=== PATIENT | female | born 1955 | race Caucasian/White ===

== ENCOUNTER 2017-08-07 18:27 | Inpatient (IN) | payer OTHER ==
[2017-08-07 20:18] VITALS: BMI 28.7
--- NOTE | 2017-08-07 20:32 | HP ---
Admission ROS [facility] Chief Complaint: SEEKING REHAB SERVICES AFTER COMPLETING DETOX TO MAINTAIN RECOVERY. Allergies/Adverse Reactions: Allergies Allergy/AdvReac Type Severity Reaction Status Date / Time No Known Allergies Allergy Verified 08/07/17 20:21 History of Present Illness: 62 Y.O. FEMALE WITH BENZO DEPENDENCE HERE FOR ADMISSION TO REHAB. CLIENT WAS DC FROM [facility] AFTER BEING TREATED THERE FROM 07/26/2017 TO 08/07/2017 FOR BENZO OVERDOSE. SHE IS CURRENTLY ON MMTP 195MG REPORTS LDM TODAY. DENIES ANY SIGNIFICANT PERIOD OF CLEAN TIME. REFERRED BY [facility]. Exam Limitations: No Limitations - Ebola screening Have you traveled outside of the country in the last 21 days: No Have you had contact with anyone from an Ebola affected area: No Have you been sick,other than usual withdrawal symptoms: No Do you have a fever: No - Review of Systems Constitutional: No Symptoms Reported EENT: reports: No Symptoms Reported Respiratory: reports: No Symptoms reported Cardiac: reports: No Symptoms Reported GI: reports: Constipated : reports: No Symptoms Reported Musculoskeletal: reports: Joint Pain (KNEES) Integumentary: reports: No Symptoms Reported Neuro: reports: Headache (MIGRAINES) Endocrine: reports: Other (HX/O DM) Hematology: reports: No Symptoms Reported Psychiatric: reports: Anxious Other Systems: Reviewed and Negative Patient History - Patient Medical History Hx Anemia: No Hx Asthma: No Hx Chronic Obstructive Pulmonary Disease (COPD): No Hx Cancer: No Hx Cardiac Disorders: No Hx Congestive Heart Failure: No Hx Hypertension: Yes (ATENOLOL) Hx Hypercholesterolemia: Yes (ON CRESTOR) Hx Pacemaker: No HX Cerebrovascular Accident: No Hx Seizures: No Hx Dementia: No Hx Diabetes: Yes (METFORMIN) Hx Gastrointestinal Disorders: Yes (GERD ON PEPCID) Hx Liver Disease: No Hx Genitourinary Disorders: No Hx Sexually Transmitted Disorders: No Hx Renal Disease (ESRD): No Hx Thyroid Disease: No Hx Human Immunodeficiency Virus (HIV): Yes (ON TRIUMEQ) Hx Hepatitis C: Yes Hx Depression: Yes Hx Suicide Attempt: No Hx Bipolar Disorder: No Hx Schizophrenia: No - Patient Surgical History Past Surgical History: No - PPD History Previous Implant?: Yes Documented Results: Negative w/o proof Implanted On Prior [facility] Admission?: No PPD to be Administered?: Yes - Reproductive History Patient is a Female of Child Bearing Age (11 -55 yrs old): No Patient : No ([place] [facility] [place] - Smoking Cessation Smoking history: Current every day smoker Have you smoked in the past 12 months: Yes Aproximately how many cigarettes per day: 30 Cigars Per Day: 0 Hx Chewing Tobacco Use: No Initiated information on smoking cessation: Yes 'Breaking Loose' booklet given: 08/07/17 - Substance & Tx. History Hx Alcohol Use: No Hx Substance Use: Yes Substance Use Type: Opiates (METHADONE), Tranquilizers (XANAX) Hx Substance Use Treatment: No - Substances Abused XANAX Route: Oral Frequency: 3-6 times per week Amount used: 10MG Age of first use: 60 Date of Last Use: 07/26/17 Family Disease History - Family Disease History Family History: Denies Family Disease History: Diabetes: Mother Admission Physical Exam S - Vital Signs Vital Signs: Vital Signs - 24 hr 08/07/17 20:16 Temperature 97.5 F L Pulse Rate 76 Respiratory 18 Rate Blood Pressure 151/84 - Physical General Appearance: Yes: Appropriately Dressed, Anxious HEENTM: Yes: EOMI, Normocephalic, Normal Voice, Pharynx Normal, Other (DENTURES UPPER AND BOTTOMS) Respiratory: Yes: Chest Non-Tender, Lungs Clear, Normal Breath Sounds, No Respiratory Distress, No Accessory Muscle Use Neck: Yes: No masses,lesions,Nodules, Supple, Trachea in good position Breast: Yes: Breast Exam Deferred Cardiology: Yes: Regular Rhythm, Regular Rate, S1, S2 Abdominal: Yes: Normal Bowel Sounds, Non Tender, Soft, Protuberent, Other ( RESOLVING ECCHYMOTIC AREAS TO ABD BATEMAN) Genitourinary: Yes: Within Normal Limits Back: Yes: Normal Inspection Musculoskeletal: Yes: full range of Motion, Gait Steady Extremities: Yes: Normal Capillary Refill, Normal Range of Motion, Non-Tender, Tremors Neurological: Yes: Alert, Other (FORGETFUL) Integumentary: Yes: Normal Color, Dry, Warm, Track [place] Lymphatic: Yes: Within Normal Limits - Diagnostic (1) Benzodiazepine dependence Current Visit: Yes Status: Chronic (2) Nicotine dependence Current Visit: Yes Status: Chronic Qualifiers: Substance use status: uncomplicated (3) HTN (hypertension) Current Visit: Yes Status: Chronic Qualifiers: Hypertension type: essential hypertension Qualified Code(s): I10 - Essential (primary) hypertension; I10 - Essential (primary) hypertension; I10 - Essential (primary) hypertension (4) Type 2 diabetes mellitus Current Visit: Yes Status: Chronic (5) GERD (gastroesophageal reflux disease) Current Visit: Yes Status: Chronic (6) HIV (human immunodeficiency virus infection) Current Visit: Yes Status: Chronic (7) Methadone maintenance therapy patient Current Visit: Yes Status: Chronic Cleared for Admission [facility] - Detox or Rehab Detox Regimen/Protocol: Not Applicable Claeared for Rehab Admission: Yes [facility] Breath Alcohol Content Breath Alcohol Content: 0 Urine Pregancy Test - Result Urine Test Results: Negative- NO Line Present Urine Drug Screen - Results Drug Screen Negative: No Urine Drug Screen Results: BZO-Benzodiazepines, MTD-Methadone, TCA-Tricyclic Antidepress Inpatient Rehab Admission - Initial Determination Are CD services needed?: Yes Free of communicable disease: Yes Not in need of hospitalization: Yes - Rehab Admission Criteria Previous failed treatment: Yes Poor recovery environment: Yes Comorbidities: Yes Lacks judgement: Yes Patient is meeting Inpatient Rehab admission criteria:: Yes
[2017-08-07] MEDS ORDERED: hydrOXYzine PAMOATE 50 MG CAPSULE (FP) PO PRN (21:04)
[2017-08-07] MEDS ORDERED: LOPERAMIDE HCL 2 MG CAPSULE PO PRN (21:04)
[2017-08-07] MEDS ORDERED: P-EPHED 60MG/TRIPROLIDI 2.5MG TABLET PO PRN (21:04)
[2017-08-07] MEDS ORDERED: IBUPROFEN 400 MG TABLET (FP) PO PRN (21:04)
[2017-08-07] MEDS ORDERED: ACETAMINOPHEN 325 MG TABLET (FP) PO PRN (21:04)
[2017-08-07] MEDS ORDERED: guaiFENesin/D-METHORPHAN HB 10 ML UNIT-DOSE CUPS PO PRN (21:04)
[2017-08-07] MEDS ORDERED: MAGNESIUM HYDROX 2400MG/30ML ORAL SUSPENSION 30 ML CUP PO PRN (21:04)
[2017-08-07] MEDS ORDERED: MENTHOL/PHENOL 1 EACH UD MM PRN (21:04)
[2017-08-07] MEDS ORDERED: MAGNESIUM CITRATE 300 ML BOTTLE PO PRN (21:04)
[2017-08-07] MEDS: ROSUVASTATIN CA 5 MG TABLET (FP) PO SCH (23:14)
[2017-08-07] MEDS: THIAMINE HCL 100 MG TABLET (FP) PO SCH (23:15)
[2017-08-07 23:29] LABS: URINE APPEARANCE SLCLOUDY; URINE BILIRUBIN NEGATIVE (NEGATIVE); URINE BLOOD NEGATIVE (NEGATIVE); URINE COLOR LTYELLOW; URINE GLUCOSE (UA) NEGATIVE (NEGATIVE); URINE KETONE NEGATIVE (NEGATIVE); URINE NITRITE NEGATIVE (NEGATIVE); URINE PROTEIN NEGATIVE (NEGATIVE); URINE UROBILINOGEN NEGATIVE mg/dL (0.2-1.0)
[2017-08-08] MEDS ORDERED: METHADONE HCL 40 MG DISPERSABLE TABLET PO SCH (07:30)
[2017-08-08] MEDS ORDERED: METHADONE HCL 10 MG TABLET ONE (07:48)
[2017-08-08] MEDS ORDERED: METHADONE HCL 5 MG TABLET ONE (07:48)
[2017-08-08] MEDS ORDERED: METHADONE HCL 40 MG DISPERSABLE TABLET ONE (07:48)
[2017-08-08] MEDS: metFORMIN HCL 500 MG TABLET (FP) PO SCH (07:52)
[2017-08-08] MEDS: METHADONE 160 MG, METHADONE 30 MG, METHADONE 5 MG PO SCH (07:52)
[2017-08-08 10:17] LABS: MCHC 33.3 g/dl (32.0-36.0); MEAN PLT VOLUME 11.3 fl (7.5-11.1); PLATELET COUNT 64 K/MM3 (134-434); RDW 13.8 % (11.6-15.6); WHITE BLOOD COUNT 3.5 K/mm3 (4.0-10.0)
[2017-08-08 10:30] LABS: ALBUMIN 2.9 g/dl (3.4-5.0); ANION GAP 6 (8-16); CALCIUM 8.4 mg/dL (8.5-10.1); CO2 28 mmol/L (21-32); GLUCOSE,RANDOM 95 mg/dL (74-106)
[2017-08-08] MEDS: ABACAVIR/DOLUTEGRAVIR/LAMIVUDI (TRIUMEQ) TABLET -NF PO SCH (10:30)
[2017-08-08] MEDS: PANTOPRAZOLE 40 MG TABLET (FP) PO SCH (10:30)
[2017-08-08] MEDS: ATENOLOL 25 MG TABLET (FP) PO SCH (10:30)
[2017-08-08] MEDS: PRENATAL VITAMINS W/ FOLIC ACID TABLET (FP) PO SCH (10:30)
[2017-08-08] MEDS: NICOTINE 21 MG/24 HOURS TOPICAL PATCH TD SCH (10:30)
[2017-08-08 10:33] LABS: ALK PHOS 100 U/L (45-117); BILIRUBIN,TOTAL 0.4 mg/dL (0.2-1.0); SGOT/AST 29 U/L (15-37); SGPT/ALT 65 U/L (12-78); TOT PROT 6.4 g/dl (6.4-8.2)
[2017-08-08 11:58] LABS: URINE LEUK ESTERASE TRACE (NEGATIVE)
[2017-08-08] MEDS: GABAPENTIN 100 MG CAPSULE (FP) PO SCH (21:40)
[2017-08-08] MEDS: MONTELUKAST NA 10 MG TABLET PO SCH (21:40)
[2017-08-08] MEDS: THIAMINE HCL 100 MG TABLET (FP) PO SCH (21:41)
[2017-08-08] MEDS: traZODone HCL 50 MG TABLET (FP) PO SCH (21:41)
[2017-08-08] MEDS: QUEtiapine FUMARATE 100 MG TABLET (FP) PO SCH (21:41)
[2017-08-08] MEDS: MIRTAZAPINE 15 MG TABLET (FP) PO SCH (21:41)
[2017-08-08] MEDS: DOXEPIN HCL 25 MG CAPSULE PO SCH (22:31)
[2017-08-08] MEDS: ROSUVASTATIN CA 5 MG TABLET (FP) PO SCH (22:32)
[2017-08-08] MEDS ORDERED: PT OWN MED DRAWER 7, Y5N ONE (22:34)
[2017-08-09] MEDS ORDERED: METHADONE HCL 10 MG TABLET ONE (02:27)
[2017-08-09] MEDS ORDERED: METHADONE HCL 40 MG DISPERSABLE TABLET ONE (02:27)
[2017-08-09] MEDS ORDERED: METHADONE HCL 5 MG TABLET ONE (02:27)
[2017-08-09] MEDS: METHADONE 160 MG, METHADONE 30 MG, METHADONE 5 MG PO SCH (06:47)
[2017-08-09] MEDS: metFORMIN HCL 500 MG TABLET (FP) PO SCH (06:48)
[2017-08-09] MEDS: GABAPENTIN 100 MG CAPSULE (FP) PO SCH ×3 (06:48→21:56)
[2017-08-09] MEDS: NICOTINE 21 MG/24 HOURS TOPICAL PATCH TD SCH (09:48)
[2017-08-09] MEDS: PANTOPRAZOLE 40 MG TABLET (FP) PO SCH (09:49)
[2017-08-09] MEDS: ABACAVIR/DOLUTEGRAVIR/LAMIVUDI (TRIUMEQ) TABLET -NF PO SCH (09:49)
[2017-08-09] MEDS: ATENOLOL 25 MG TABLET (FP) PO SCH (09:49)
[2017-08-09] MEDS: PRENATAL VITAMINS W/ FOLIC ACID TABLET (FP) PO SCH (09:49)
[2017-08-09] MEDS: traZODone HCL 50 MG TABLET (FP) PO SCH (21:55)
[2017-08-09] MEDS: MONTELUKAST NA 10 MG TABLET PO SCH (21:55)
[2017-08-09] MEDS: THIAMINE HCL 100 MG TABLET (FP) PO SCH (21:56)
[2017-08-09] MEDS: MIRTAZAPINE 15 MG TABLET (FP) PO SCH (21:56)
[2017-08-09] MEDS: QUEtiapine FUMARATE 100 MG TABLET (FP) PO SCH (21:56)
[2017-08-09] MEDS: DOXEPIN HCL 25 MG CAPSULE PO SCH (21:56)
[2017-08-09] MEDS: ROSUVASTATIN CA 5 MG TABLET (FP) PO SCH (21:57)
[2017-08-09] MEDS ORDERED: DOXEPIN HCL 25 MG CAPSULE PO SCH (22:00)
[2017-08-10] MEDS ORDERED: METHADONE HCL 5 MG TABLET ONE (03:24)
[2017-08-10] MEDS ORDERED: METHADONE HCL 40 MG DISPERSABLE TABLET ONE (03:25)
[2017-08-10] MEDS ORDERED: METHADONE HCL 10 MG TABLET ONE (03:25)
[2017-08-10] MEDS: METHADONE 160 MG, METHADONE 30 MG, METHADONE 5 MG PO SCH (06:32)
[2017-08-10] MEDS: metFORMIN HCL 500 MG TABLET (FP) PO SCH (06:33)
[2017-08-10] MEDS: GABAPENTIN 100 MG CAPSULE (FP) PO SCH ×3 (06:33→21:24)
[2017-08-10] MEDS ORDERED: PT OWN MED DRAWER 7, Y5N ONE ×2 (08:42→19:05)
[2017-08-10] MEDS: ABACAVIR/DOLUTEGRAVIR/LAMIVUDI (TRIUMEQ) TABLET -NF PO SCH (10:16)
[2017-08-10] MEDS: PANTOPRAZOLE 40 MG TABLET (FP) PO SCH (10:16)
[2017-08-10] MEDS: PRENATAL VITAMINS W/ FOLIC ACID TABLET (FP) PO SCH (10:17)
[2017-08-10] MEDS: NICOTINE 21 MG/24 HOURS TOPICAL PATCH TD SCH (10:17)
[2017-08-10] MEDS: ATENOLOL 25 MG TABLET (FP) PO SCH (10:17)
[2017-08-10 11:57] LABS: CALCIUM OXALATE CRYSTALS MODERATE /hpf (NONE SEEN); URIC ACID CRYSTALS MANY /hpf (NONE SEEN); URINE RBC 0; URINE WBC 5
--- NOTE | 2017-08-10 13:53 | HP ---
Psychiatrist Admission - Data Date of interview: 08/10/17 Admission source: [facility] [place] Identifying data: This is the first admission to [facility] [place] inpatient rehabilitation for this 62 single H female mother of 2 (both son and daughter commited suicide),resides alone ,supported by [facility]. Medical History: HIV+,Gep C,HTN,GERD,DM. Psychiatric History: Patient was dx with PTSD(2 children committed suicide).She was placed on psychotropic medications recently by her psychiatrist at [facility]: Seroquel 200 mg po hs,Doxepin 25 mg po hs,Trazodone 150 mg po hs and Remeron 15 mg po hs.Denies history of suicidal attempts,no psychiatric hospitalizations. Physical/Sexual Abuse/Trauma History: Patient lost both her children(son and daughter committed suicide). Vital Signs: Vital Signs - 24 hr 08/10/17 08/10/17 08/10/17 00:30 03:30 06:59 Temperature 97.8 F Pulse Rate 80 Respiratory 18 18 18 Rate Blood Pressure 105/65 08/10/17 10:00 Temperature Pulse Rate 72 Respiratory Rate Blood Pressure 100/61 Allergies/Adverse Reactions: Allergies Allergy/AdvReac Type Severity Reaction Status Date / Time No Known Allergies Allergy Verified 08/07/17 20:21 Date of last physical exam: 08/07/17 Concur with the findings of this exam: Yes - Substance Abuse/Tx History Hx Alcohol Use: Yes (reports drinking 18 yo,a few 6 packs beer daily) Hx Substance Use: Yes (heroin since 1989(IV),Xanax ) Substance Use Type: Alcohol, Heroin, Tranquilizers Hx Substance Use Treatment: Yes (this is her first inpatient rehabilitation program) Mental Status Exam - Mental Status Exam Alert and Oriented to: Time, Place, Person Cognitive Function: Grossly Intact Patient Appearance: Unkempt Mood: Sad, Anxious Affect: Labile Patient Behavior: Cooperative Speech Pattern: Clear Voice Loudness: Normal Thought Process: Goal Oriented Thought Disorder: Not Present Hallucinations: Denies Suicidal Ideation: Denies Homicidal Ideation: Denies Insight/Judgement: Fair Sleep: Fair Appetite: Good Muscle strength/Tone: Normal Gait/Station: Normal Psychiatric Findings - Problem List ([place] 1, 2,3) (1) Hepatitis C antibody positive in blood Current Visit: Yes Status: Chronic (2) Benzodiazepine dependence Current Visit: Yes Status: Chronic (3) GERD (gastroesophageal reflux disease) Current Visit: Yes Status: Chronic (4) HIV (human immunodeficiency virus infection) Current Visit: Yes Status: Chronic (5) HTN (hypertension) Current Visit: Yes Status: Chronic Qualifiers: Hypertension type: essential hypertension Qualified Code(s): I10 - Essential (primary) hypertension; I10 - Essential (primary) hypertension; I10 - Essential (primary) hypertension (6) Methadone maintenance therapy patient Current Visit: Yes Status: Chronic (7) Nicotine dependence Current Visit: Yes Status: Chronic Qualifiers: Substance use status: uncomplicated (8) Type 2 diabetes mellitus Current Visit: Yes Status: Chronic (9) PTSD (post-traumatic stress disorder) Current Visit: Yes Status: Chronic - Initial Treatment Plan Initial Treatment Plan: Remeron 15 mg po hs,Trazodone 150 mg po hs,Doxepin 25 mg po hs and Seroquel 200 mg po hs. Will monitor progress.
[2017-08-10] MEDS: traZODone HCL 50 MG TABLET (FP) PO SCH (21:24)
[2017-08-10] MEDS: THIAMINE HCL 100 MG TABLET (FP) PO SCH (21:24)
[2017-08-10] MEDS: QUEtiapine FUMARATE 100 MG TABLET (FP) PO SCH (21:24)
[2017-08-10] MEDS: MONTELUKAST NA 10 MG TABLET PO SCH (21:24)
[2017-08-10] MEDS: MIRTAZAPINE 15 MG TABLET (FP) PO SCH (21:24)
[2017-08-10] MEDS: DOXEPIN HCL 25 MG CAPSULE PO SCH (21:25)
[2017-08-10] MEDS: ROSUVASTATIN CA 5 MG TABLET (FP) PO SCH (21:25)
[2017-08-11] MEDS ORDERED: METHADONE HCL 40 MG DISPERSABLE TABLET ONE (05:59)
[2017-08-11] MEDS ORDERED: METHADONE HCL 10 MG TABLET ONE (05:59)
[2017-08-11] MEDS ORDERED: METHADONE HCL 5 MG TABLET ONE (05:59)
[2017-08-11] MEDS: METHADONE 160 MG, METHADONE 30 MG, METHADONE 5 MG PO SCH (06:41)
[2017-08-11] MEDS: metFORMIN HCL 500 MG TABLET (FP) PO SCH (06:42)
[2017-08-11] MEDS: GABAPENTIN 100 MG CAPSULE (FP) PO SCH ×3 (06:42→21:33)
--- NOTE | 2017-08-11 07:44 | EKG ---
Test Reason : Blood Pressure : / mmHG Vent. Rate : 065 BPM Atrial Rate : 065 BPM P-R Int : 142 ms QRS Dur : 072 ms QT Int : 426 ms P-R-T Axes : 040 039 031 degrees QTc Int : 443 ms NORMAL SINUS RHYTHM NORMAL ECG NO PREVIOUS ECGS AVAILABLE Confirmed by KHANH TSAI MD ([id number]) on 08/11/2017 7:44:31 AM Referred By: Confirmed By:KHANH TSAI MD
[2017-08-11] MEDS: ABACAVIR/DOLUTEGRAVIR/LAMIVUDI (TRIUMEQ) TABLET -NF PO SCH (10:36)
[2017-08-11] MEDS: NICOTINE 21 MG/24 HOURS TOPICAL PATCH TD SCH (10:36)
[2017-08-11] MEDS: PRENATAL VITAMINS W/ FOLIC ACID TABLET (FP) PO SCH (10:36)
[2017-08-11] MEDS: ATENOLOL 25 MG TABLET (FP) PO SCH (10:36)
[2017-08-11] MEDS: PANTOPRAZOLE 40 MG TABLET (FP) PO SCH (10:36)
[2017-08-11] MEDS ORDERED: METHADONE HCL 40 MG DISPERSABLE TABLET PO SCH (12:46)
[2017-08-11] MEDS ORDERED: TUBERCULIN PPD 5 TU/0.1ML VIAL ID ONE (13:20)
[2017-08-11] MEDS: LIDOCAINE 5% TOPICAL PATCH TP SCH (13:53)
[2017-08-11] MEDS: THIAMINE HCL 100 MG TABLET (FP) PO SCH (21:33)
[2017-08-11] MEDS: traZODone HCL 50 MG TABLET (FP) PO SCH (21:33)
[2017-08-11] MEDS: QUEtiapine FUMARATE 100 MG TABLET (FP) PO SCH (21:33)
[2017-08-11] MEDS: MONTELUKAST NA 10 MG TABLET PO SCH (21:33)
[2017-08-11] MEDS: MIRTAZAPINE 15 MG TABLET (FP) PO SCH (21:33)
[2017-08-11] MEDS: DOXEPIN HCL 25 MG CAPSULE PO SCH (21:34)
[2017-08-11] MEDS: LIDOCAINE PATCH REMOVAL MC SCH (21:35)
[2017-08-11] MEDS: ROSUVASTATIN CA 5 MG TABLET (FP) PO SCH (21:35)
[2017-08-12] MEDS ORDERED: METHADONE HCL 5 MG TABLET ONE (07:04)
[2017-08-12] MEDS ORDERED: METHADONE HCL 10 MG TABLET ONE (07:04)
[2017-08-12] MEDS ORDERED: METHADONE HCL 40 MG DISPERSABLE TABLET ONE (07:05)
[2017-08-12] MEDS: METHADONE 160 MG, METHADONE 20 MG, METHADONE 5 MG PO SCH (07:37)
[2017-08-12] MEDS: GABAPENTIN 100 MG CAPSULE (FP) PO SCH ×3 (07:38→21:31)
[2017-08-12] MEDS: metFORMIN HCL 500 MG TABLET (FP) PO SCH (07:38)
[2017-08-12] MEDS ORDERED: PT OWN MED DRAWER 7, Y5N ONE (08:57)
[2017-08-12] MEDS: PRENATAL VITAMINS W/ FOLIC ACID TABLET (FP) PO SCH (10:36)
[2017-08-12] MEDS: ABACAVIR/DOLUTEGRAVIR/LAMIVUDI (TRIUMEQ) TABLET -NF PO SCH (10:37)
[2017-08-12] MEDS: PANTOPRAZOLE 40 MG TABLET (FP) PO SCH (10:37)
[2017-08-12] MEDS: NICOTINE 21 MG/24 HOURS TOPICAL PATCH TD SCH (10:37)
[2017-08-12] MEDS: ATENOLOL 25 MG TABLET (FP) PO SCH (10:37)
[2017-08-12] MEDS: LIDOCAINE 5% TOPICAL PATCH TP SCH (10:38)
[2017-08-12] MEDS: THIAMINE HCL 100 MG TABLET (FP) PO SCH (21:31)
[2017-08-12] MEDS: traZODone HCL 50 MG TABLET (FP) PO SCH (21:31)
[2017-08-12] MEDS: DOXEPIN HCL 25 MG CAPSULE PO SCH (21:31)
[2017-08-12] MEDS: MONTELUKAST NA 10 MG TABLET PO SCH (21:31)
[2017-08-12] MEDS: MIRTAZAPINE 15 MG TABLET (FP) PO SCH (21:31)
[2017-08-12] MEDS: QUEtiapine FUMARATE 100 MG TABLET (FP) PO SCH (21:32)
[2017-08-12] MEDS: LIDOCAINE PATCH REMOVAL MC SCH (21:35)
[2017-08-12] MEDS: ROSUVASTATIN CA 5 MG TABLET (FP) PO SCH (21:35)
[2017-08-13] MEDS ORDERED: METHADONE HCL 5 MG TABLET ONE (03:23)
[2017-08-13] MEDS ORDERED: METHADONE HCL 40 MG DISPERSABLE TABLET ONE (03:23)
[2017-08-13] MEDS ORDERED: METHADONE HCL 10 MG TABLET ONE (03:23)
[2017-08-13] MEDS: METHADONE 160 MG, METHADONE 20 MG, METHADONE 5 MG PO SCH (06:40)
[2017-08-13] MEDS: GABAPENTIN 100 MG CAPSULE (FP) PO SCH ×2 (06:41→13:03)
[2017-08-13] MEDS: metFORMIN HCL 500 MG TABLET (FP) PO SCH (06:41)
[2017-08-13] MEDS ORDERED: PT OWN MED DRAWER 7, Y5N ONE (08:40)
[2017-08-13] MEDS: PRENATAL VITAMINS W/ FOLIC ACID TABLET (FP) PO SCH (10:27)
[2017-08-13] MEDS: LIDOCAINE 5% TOPICAL PATCH TP SCH (10:27)
[2017-08-13] MEDS: PANTOPRAZOLE 40 MG TABLET (FP) PO SCH (10:27)
[2017-08-13] MEDS: ABACAVIR/DOLUTEGRAVIR/LAMIVUDI (TRIUMEQ) TABLET -NF PO SCH (10:27)
[2017-08-13] MEDS: ATENOLOL 25 MG TABLET (FP) PO SCH (10:27)
[2017-08-13] MEDS: NICOTINE 21 MG/24 HOURS TOPICAL PATCH TD SCH (10:28)
--- NOTE | 2017-08-13 14:56 | PN ---
[facility] Progress Note (SOAP) Subjective: c/o new ankle swelling, confusion has bee decreasing methadone daily dose from 195 to 185 but does not want to go down further Objective: 08/13/17 14:52 Vital Signs - 24 hr 08/12/17 08/13/17 08/13/17 15:30 00:30 03:30 Temperature 97.3 F L Pulse Rate 76 Respiratory 16 18 18 Rate Blood Pressure 109/65 08/13/17 08/13/17 07:12 10:00 Temperature 97.8 F Pulse Rate 83 81 Respiratory 18 Rate Blood Pressure 114/85 117/72 Laboratory Tests 08/07/17 08/08/17 08/08/17 21:55 07:51 07:55 WBC 3.5 L RBC 3.87 Hgb 12.0 Hct 36.0 MCV 93.0 MCH 31.0 MCHC 33.3 RDW 13.8 Plt Count 64 L MPV 11.3 H Sodium Potassium Chloride Carbon Dioxide Anion Gap BUN Creatinine Creat Clearance w eGFR POC Glucometer 105 Random Glucose Calcium Total Bilirubin AST ALT Alkaline Phosphatase Total Protein Albumin Urine Color Ltyellow Urine Appearance Slcloudy Urine pH 5.0 Ur Specific [place] 1.021 Urine Protein Negative Urine Glucose (UA) Negative Urine Ketones Negative Urine Blood Negative Urine Nitrite Negative Urine Bilirubin Negative Urine Urobilinogen Negative Ur Leukocyte Esterase Trace H Urine RBC 0 Urine WBC 5 Ur Epithelial Cells 10-15 Calcium Oxalate Crystal Moderate Uric Acid Crystals Many RPR Titer Hepatitis C Antibody HCV Quantitation HCV RNA 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 08/08/17 08/08/17 08/08/17 07:55 07:55 07:55 WBC RBC Hgb Hct MCV MCH MCHC RDW Plt Count MPV Sodium 140 Potassium 4.4 Chloride 106 Carbon Dioxide 28 Anion Gap 6 L BUN 25 H Creatinine 1.0 Creat Clearance w eGFR 56.56 POC Glucometer Random Glucose 95 Calcium 8.4 L Total Bilirubin 0.4 AST 29 ALT 65 Alkaline Phosphatase 100 Total Protein 6.4 Albumin 2.9 L Urine Color Urine Appearance Urine pH Ur Specific [place] Urine Protein Urine Glucose (UA) Urine Ketones Urine Blood Urine Nitrite Urine Bilirubin Urine Urobilinogen Ur Leukocyte Esterase Urine RBC Urine WBC Ur Epithelial Cells Calcium Oxalate Crystal Uric Acid Crystals RPR Titer Nonreactive Hepatitis C Antibody 6.4 H HCV Quantitation HCV RNA 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 08/09/17 08/10/17 08/10/17 06:45 06:31 08:00 WBC RBC Hgb Hct MCV MCH MCHC RDW Plt Count MPV Sodium Potassium Chloride Carbon Dioxide Anion Gap BUN Creatinine Creat Clearance w eGFR POC Glucometer 107 138 Random Glucose Calcium Total Bilirubin AST ALT Alkaline Phosphatase Total Protein Albumin Urine Color Urine Appearance Urine pH Ur Specific [place] Urine Protein Urine Glucose (UA) Urine Ketones Urine Blood Urine Nitrite Urine Bilirubin Urine Urobilinogen Ur Leukocyte Esterase Urine RBC Urine WBC Ur Epithelial Cells Calcium Oxalate Crystal Uric Acid Crystals RPR Titer Hepatitis C Antibody HCV Quantitation Hcv not detected HCV RNA 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 TNP 08/11/17 08/12/17 08/13/17 06:40 07:03 06:39 WBC RBC Hgb Hct MCV MCH MCHC RDW Plt Count MPV Sodium Potassium Chloride Carbon Dioxide Anion Gap BUN Creatinine Creat Clearance w eGFR POC Glucometer 141 107 133 Random Glucose Calcium Total Bilirubin AST ALT Alkaline Phosphatase Total Protein Albumin Urine Color Urine Appearance Urine pH Ur Specific [place] Urine Protein Urine Glucose (UA) Urine Ketones Urine Blood Urine Nitrite Urine Bilirubin Urine Urobilinogen Ur Leukocyte Esterase Urine RBC Urine WBC Ur Epithelial Cells Calcium Oxalate Crystal Uric Acid Crystals RPR Titer Hepatitis C Antibody HCV Quantitation HCV RNA 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
[2017-08-13] MEDS: THIAMINE HCL 100 MG TABLET (FP) PO SCH (21:52)
[2017-08-13] MEDS: MIRTAZAPINE 15 MG TABLET (FP) PO SCH (21:52)
[2017-08-13] MEDS: LIDOCAINE PATCH REMOVAL MC SCH (21:53)
[2017-08-13] MEDS: MONTELUKAST NA 10 MG TABLET PO SCH (21:53)
[2017-08-13] MEDS: QUEtiapine FUMARATE 100 MG TABLET (FP) PO SCH (21:53)
[2017-08-13] MEDS: DOXEPIN HCL 25 MG CAPSULE PO SCH (21:53)
[2017-08-13] MEDS: ROSUVASTATIN CA 5 MG TABLET (FP) PO SCH (23:29)
[2017-08-14] MEDS ORDERED: METHADONE HCL 40 MG DISPERSABLE TABLET ONE (03:23)
[2017-08-14] MEDS ORDERED: METHADONE HCL 5 MG TABLET ONE (03:23)
[2017-08-14] MEDS ORDERED: METHADONE HCL 10 MG TABLET ONE (03:23)
[2017-08-14] MEDS: METHADONE 160 MG, METHADONE 20 MG, METHADONE 5 MG PO SCH (06:21)
[2017-08-14] MEDS: metFORMIN HCL 500 MG TABLET (FP) PO SCH (06:22)
[2017-08-14 09:48] LABS: BASOPHIL 0.3 % (0-2.0); EOSINOPHIL 2.2 % (0-4.5); MCH 30.8 pg (25.7-33.7); MCHC 33.4 g/dl (32.0-36.0); MEAN CELL VOLUME 92.4 fl (80-96); MEAN PLT VOLUME 11.3 fl (7.5-11.1); NEUTROPHILS 48.3 % (42.8-82.8); PLATELET COUNT 85 K/MM3 (134-434); RDW 13.6 % (11.6-15.6); WHITE BLOOD COUNT 3.7 K/mm3 (4.0-10.0)
[2017-08-14] MEDS: PRENATAL VITAMINS W/ FOLIC ACID TABLET (FP) PO SCH (10:28)
[2017-08-14] MEDS: ABACAVIR/DOLUTEGRAVIR/LAMIVUDI (TRIUMEQ) TABLET -NF PO SCH (10:28)
[2017-08-14] MEDS: ATENOLOL 25 MG TABLET (FP) PO SCH (10:29)
[2017-08-14] MEDS: LIDOCAINE 5% TOPICAL PATCH TP SCH ×3 (10:29→12:22)
[2017-08-14] MEDS: NICOTINE 21 MG/24 HOURS TOPICAL PATCH TD SCH (10:29)
[2017-08-14 11:08] LABS: ALBUMIN 2.7 g/dl (3.4-5.0); ANION GAP 6 (8-16); BILIRUBIN,TOTAL 0.2 mg/dL (0.2-1.0); CALCIUM 8.1 mg/dL (8.5-10.1); CO2 31 mmol/L (21-32); GLUCOSE,RANDOM 128 mg/dL (74-106); SGOT/AST 29 U/L (15-37); SGPT/ALT 57 U/L (12-78); TOT PROT 6.1 g/dl (6.4-8.2)
[2017-08-14 11:09] LABS: ALK PHOS 100 U/L (45-117)
[2017-08-14] MEDS ORDERED: LACTULOSE 20 GM/30 ML UDC (FOR ORAL USE ONLY) PO SCH (14:00)
[2017-08-14] MEDS: NICOTINE POLACRILEX 4 MG GUM BC PRN (14:10)
[2017-08-14] MEDS: MIRTAZAPINE 15 MG TABLET (FP) PO SCH (21:54)
[2017-08-14] MEDS: DOXEPIN HCL 25 MG CAPSULE PO SCH (21:54)
[2017-08-14] MEDS: MONTELUKAST NA 10 MG TABLET PO SCH (21:54)
[2017-08-14] MEDS: ROSUVASTATIN CA 5 MG TABLET (FP) PO SCH (21:54)
[2017-08-14] MEDS: THIAMINE HCL 100 MG TABLET (FP) PO SCH (21:54)
[2017-08-14] MEDS: QUEtiapine FUMARATE 100 MG TABLET (FP) PO SCH (21:54)
[2017-08-14] MEDS: LACTULOSE 20 GM/30 ML UDC (FOR ORAL USE ONLY) PO SCH (21:57)
[2017-08-14] MEDS: LIDOCAINE PATCH REMOVAL MC SCH (21:59)
[2017-08-15] MEDS ORDERED: METHADONE HCL 10 MG TABLET ONE (06:00)
[2017-08-15] MEDS ORDERED: METHADONE HCL 5 MG TABLET ONE (06:00)
[2017-08-15] MEDS ORDERED: METHADONE HCL 40 MG DISPERSABLE TABLET ONE (06:01)
[2017-08-15] MEDS: METHADONE 160 MG, METHADONE 20 MG, METHADONE 5 MG PO SCH (06:39)
[2017-08-15] MEDS: metFORMIN HCL 500 MG TABLET (FP) PO SCH (06:39)
[2017-08-15] MEDS: NICOTINE 21 MG/24 HOURS TOPICAL PATCH TD SCH (09:58)
[2017-08-15] MEDS: ATENOLOL 25 MG TABLET (FP) PO SCH (09:58)
[2017-08-15] MEDS: PRENATAL VITAMINS W/ FOLIC ACID TABLET (FP) PO SCH (09:58)
[2017-08-15] MEDS: LACTULOSE 20 GM/30 ML UDC (FOR ORAL USE ONLY) PO SCH ×2 (09:58→21:21)
[2017-08-15] MEDS: LIDOCAINE 5% TOPICAL PATCH TP SCH ×2 (09:59)
[2017-08-15] MEDS: ABACAVIR/DOLUTEGRAVIR/LAMIVUDI (TRIUMEQ) TABLET -NF PO SCH (12:53)
[2017-08-15] MEDS ORDERED: PT OWN MED DRAWER 7, Y5N ONE ×2 (19:37→22:10)
[2017-08-15] MEDS: THIAMINE HCL 100 MG TABLET (FP) PO SCH (21:20)
[2017-08-15] MEDS: MONTELUKAST NA 10 MG TABLET PO SCH (21:21)
[2017-08-15] MEDS: MIRTAZAPINE 15 MG TABLET (FP) PO SCH (21:21)
[2017-08-15] MEDS: DOXEPIN HCL 25 MG CAPSULE PO SCH (21:21)
[2017-08-15] MEDS: QUEtiapine FUMARATE 100 MG TABLET (FP) PO SCH (21:21)
[2017-08-15] MEDS: ROSUVASTATIN CA 5 MG TABLET (FP) PO SCH (21:22)
[2017-08-15] MEDS: LIDOCAINE PATCH REMOVAL MC SCH (21:22)
[2017-08-16] MEDS ORDERED: METHADONE HCL 40 MG DISPERSABLE TABLET ONE (05:58)
[2017-08-16] MEDS ORDERED: METHADONE HCL 10 MG TABLET ONE (05:58)
[2017-08-16] MEDS ORDERED: METHADONE HCL 5 MG TABLET ONE (05:58)
[2017-08-16] MEDS: METHADONE 160 MG, METHADONE 20 MG, METHADONE 5 MG PO SCH (06:38)
[2017-08-16] MEDS: metFORMIN HCL 500 MG TABLET (FP) PO SCH (06:39)
[2017-08-16] MEDS: PRENATAL VITAMINS W/ FOLIC ACID TABLET (FP) PO SCH (10:04)
[2017-08-16] MEDS: ATENOLOL 25 MG TABLET (FP) PO SCH (10:04)
[2017-08-16] MEDS: ABACAVIR/DOLUTEGRAVIR/LAMIVUDI (TRIUMEQ) TABLET -NF PO SCH (10:04)
[2017-08-16] MEDS: LIDOCAINE 5% TOPICAL PATCH TP SCH ×2 (10:05)
[2017-08-16] MEDS: LACTULOSE 20 GM/30 ML UDC (FOR ORAL USE ONLY) PO SCH ×2 (10:05→21:47)
[2017-08-16] MEDS: NICOTINE 21 MG/24 HOURS TOPICAL PATCH TD SCH (10:05)
--- NOTE | 2017-08-16 11:18 | PN ---
Psychiatric Progress Note Vital Signs: Vital Signs Period Temp Pulse Resp BP Sys/Miller Pulse Ox Last 24 Hr 97.8 F-98.2 F 72-80 16-18 154-161/81-89 Date of Session: 08/16/17 Chief Complaint:: Anxiety HPI: Patient addressing Sedative Dependence comorbid with Opoid Dependence on Agonist Therapy, Nicotine Dependence and PTSD ROS: HTN, type 2 DM, Hep C, HIV+ Current Medications: Active Medications Generic Name Dose Route Start Last Admin Trade Name Freq PRN Reason Stop Dose Admin Abacavir/Dolutegravir/Lamivudine 1 each 08/08/17 10:00 08/16/17 10:04 Triumeq (Non-Formulary) PO 1 each DAILY SRIDHAR Administration Al Hydroxide/Mg Hydroxide 30 ml 08/07/17 21:04 Mylanta Oral Suspension - PO Q6H PRN DYSPEPSIA Atenolol 25 mg 08/08/17 10:00 08/16/17 10:04 Tenormin - PO 25 mg DAILY SRIDHAR Administration Doxepin HCl 25 mg 08/08/17 22:00 08/15/17 21:21 Sinequan - PO 25 mg HS SRIDHAR Administration Eucalyptus/Menthol/Phenol/Sorbitol 1 each 08/07/17 21:04 Cepastat Lozenge - MM Q4H PRN SORE THROAT Lactulose 20 gm 08/14/17 22:00 08/16/17 10:05 Cephulac (Oral Use) PO 20 gm BID SRIDHAR Administration Lidocaine 1 patch 08/14/17 11:22 08/16/17 10:05 Lidoderm Patch - TP 1 patch DAILY SRIDHAR Administration Lidocaine 1 patch 08/14/17 11:23 08/16/17 10:05 Lidoderm Patch - TP 1 patch DAILY SRIDHAR Administration Loperamide HCl 4 mg 08/07/17 21:04 Imodium - PO Q6H PRN DIARRHEA Magnesium Citrate 300 ml 08/07/17 21:04 08/13/17 18:41 Citroma - PO 300 ml Q48H PRN Administration CONSTIPATION Magnesium Hydroxide 30 ml 08/07/17 21:04 08/10/17 17:58 Milk Of Magnesia - PO 30 ml DAILY PRN Administration CONSTIPATION Metformin HCl 500 mg 08/08/17 07:00 08/16/17 06:39 Glucophage - PO 500 mg AM SRIDHAR Administration Methadone HCl 160 mg/ 185 mg 08/12/17 06:00 08/16/17 06:38 Methadone HCl 20 mg/ Methadone PO 185 mg HCl 5 mg DAILY@0600 SRIDHAR Administration Mirtazapine 15 mg 08/08/17 22:00 08/15/17 21:21 Remeron - PO 15 mg HS SRIDHAR Administration Miscellaneous 1 each 08/14/17 22:00 08/15/17 21:22 Lidoderm Patch Removal MC 1 each DAILY@2200 SRIDHAR Administration Montelukast Sodium 10 mg 08/08/17 22:00 08/15/17 21:21 Singulair - PO 10 mg HS SRIDHAR Administration Nicotine 21 mg 08/08/17 10:00 08/16/17 10:05 Nicoderm Patch - TD 21 mg DAILY SRIDHAR Administration Nicotine Polacrilex 4 mg 08/07/17 21:04 08/14/17 14:10 Nicorette Gum - BC 4 mg Q2H PRN Administration NICOTINE REPLACEMENT RX Multivit/Folic Acid/Iron 1 tab 08/08/17 10:00 08/16/17 10:04 Vitamins ([facility]) - PO 1 tab DAILY SRIDHAR Administration Quetiapine Fumarate 200 mg 08/08/17 22:00 08/15/17 21:21 Seroquel - PO 200 mg HS SRIDHAR Administration Rosuvastatin Calcium 5 mg 08/07/17 22:00 08/15/17 21:22 Crestor - PO 5 mg HS SRIDHAR Administration Thiamine HCl 100 mg 08/07/17 22:00 08/15/17 21:20 Vitamin B1 - PO 100 mg HS SRIDHAR Administration Medication(s) Change(s): 1) Start Haldol 2 mg po Q 4hrs prn for anxiety and [place] 0.5 mg po Q 4 hrs prn for EPS reaction to Haldol. 2) Decrease Seroquel dosage to 100 mg po HS. 3) Hold Remeron & Doxepin Current Side Effect: No Lab tests ordered: Yes Lab tests reviewed: Yes Provider note:: Asked to see patient because of anxiety. Chart reviewed and patient evaluated. Patient is being treated for hepatic encephalopathy with Lactulose. She is still mildly confused and disoriented. She believes she is in the [place] and today's date is October 31, 2009. Reports feeling very anxious. She is currently on Methadone 185 mg/day along with following psychotropic medications: Seroquel 200 mg po HS, Remeron 15 mg po Hs and Doxepin 25 mg po HS. Mental Status Exam - Mental Status Exam Alert and Oriented to: Time (Oct 31, 2009), Place ([place]), Person Cognitive Function: Impaired Patient Appearance: Well Groomed Mood: Anxious Affect: Appropriate Patient Behavior: Cooperative Speech Pattern: Clear Voice Loudness: Normal Thought Process: Intact Thought Disorder: Not Present Hallucinations: Denies Suicidal Ideation: Denies Homicidal Ideation: Denies Insight/Judgement: Fair Sleep: Fair Appetite: Good Muscle strength/Tone: Normal Gait/Station: Normal Psychiatric Treatment Plan - Problem List (1) Sedative hypnotic or anxiolytic dependence Current Visit: Yes (2) Opioid dependence on agonist therapy Current Visit: Yes (3) Nicotine dependence Current Visit: Yes (4) PTSD (post-traumatic stress disorder) Current Visit: Yes (5) GERD (gastroesophageal reflux disease) Current Visit: Yes (6) HIV (human immunodeficiency virus infection) Current Visit: Yes (7) HTN (hypertension) Current Visit: Yes Qualifiers: Hypertension type: essential hypertension Qualified Code(s): I10 - Essential (primary) hypertension (8) Hepatitis C antibody positive in blood Current Visit: Yes (9) Type 2 diabetes mellitus Current Visit: Yes (10) Hepatic encephalopathy Current Visit: Yes Initial treatment plan: 1) Start Haldol 2 mg po Q 4hrs prn for anxiety and insomnia and Cogentin 0.5 mg po Q 4hrs prn in case of EPS reaction due to Haldol. 2) Decrease Seroquel dosage to 100 mg po HS. 3) Hold Remeron & Sinequan to reduce confusion/disorientation produced by their anticholinergic properties. 4) Recommend that Methadone dosage be reduced further if altered mental state persists
[2017-08-16] MEDS ORDERED: HALOPERIDOL 2 MG TABLET PO PRN (11:51)
[2017-08-16] MEDS ORDERED: BENZTROPINE MESYLATE 0.5 MG TABLET (FP) PO PRN (11:54)
[2017-08-16] MEDS ORDERED: QUEtiapine FUMARATE 100 MG TABLET (FP) PO SCH (12:00)
--- NOTE | 2017-08-16 17:29 | PN ---
[facility] Progress Note Note: Psychiatry Attending's communications lead note : Called by nurse. Issue : patient is anxious. Ms Malik is asking for medications. Situation was addressed in the morning. Over telephone by this remote mortgage underwriter.Spoke to patient. Case was endorsed to Dr Bai (on-site). Chart reviewed. Dr Lanza's intervention : appreciated. Agree with the new careplan : discontinuation of doxepin,trazodone,remeron lowering of methadone and seroquel dose. Recommendation : Maintain close observation. No additional psychotropic medications. Support and reassurance.Medical follow-up. Discussed with nurse.
[2017-08-16] MEDS: QUEtiapine FUMARATE 100 MG TABLET (FP) PO SCH (21:47)
[2017-08-16] MEDS: THIAMINE HCL 100 MG TABLET (FP) PO SCH (21:47)
[2017-08-16] MEDS: MONTELUKAST NA 10 MG TABLET PO SCH (21:47)
[2017-08-16] MEDS: ROSUVASTATIN CA 5 MG TABLET (FP) PO SCH (21:48)
[2017-08-16] MEDS: LIDOCAINE PATCH REMOVAL MC SCH (21:48)
[2017-08-17] MEDS ORDERED: METHADONE HCL 5 MG TABLET ONE (06:02)
[2017-08-17] MEDS ORDERED: METHADONE HCL 40 MG DISPERSABLE TABLET ONE (06:03)
[2017-08-17] MEDS ORDERED: METHADONE HCL 10 MG TABLET ONE (06:03)
[2017-08-17] MEDS: METHADONE 160 MG, METHADONE 20 MG, METHADONE 5 MG PO SCH (06:26)
[2017-08-17] MEDS: metFORMIN HCL 500 MG TABLET (FP) PO SCH (06:26)
[2017-08-17] MEDS ORDERED: PT OWN MED DRAWER 7, Y5N ONE ×2 (08:50→16:16)
[2017-08-17] MEDS: ATENOLOL 25 MG TABLET (FP) PO SCH (10:30)
[2017-08-17] MEDS: PRENATAL VITAMINS W/ FOLIC ACID TABLET (FP) PO SCH (10:30)
[2017-08-17] MEDS: LIDOCAINE 5% TOPICAL PATCH TP SCH ×2 (10:30)
[2017-08-17] MEDS: ABACAVIR/DOLUTEGRAVIR/LAMIVUDI (TRIUMEQ) TABLET -NF PO SCH (10:30)
[2017-08-17] MEDS: NICOTINE 21 MG/24 HOURS TOPICAL PATCH TD SCH (10:31)
[2017-08-17] MEDS: LACTULOSE 20 GM/30 ML UDC (FOR ORAL USE ONLY) PO SCH (10:31)
--- NOTE | 2017-08-17 12:37 | PN ---
[facility] Progress Note (SOAP) Subjective: bilateral ankle swelling, c/o inadequate dose of methadone after decrease in dose, would like to go up to daily dose verified Objective: 08/17/17 12:39 Vital Signs - 8 hr 08/17/17 08/17/17 07:12 09:16 Temperature 97.9 F Pulse Rate 73 87 Respiratory 18 18 Rate Blood Pressure 157/77 150/68 Laboratory Tests 08/07/17 08/08/17 08/08/17 21:55 07:51 07:55 WBC 3.5 L RBC 3.87 Hgb 12.0 Hct 36.0 MCV 93.0 MCH 31.0 MCHC 33.3 RDW 13.8 Plt Count 64 L MPV 11.3 H Neutrophils % Lymphocytes % Monocytes % Eosinophils % Basophils % Sodium Potassium Chloride Carbon Dioxide Anion Gap BUN Creatinine Creat Clearance w eGFR POC Glucometer 105 Random Glucose Calcium Total Bilirubin AST ALT Alkaline Phosphatase Ammonia Total Protein Albumin Urine Color Ltyellow Urine Appearance Slcloudy Urine pH 5.0 Ur Specific [place] 1.021 Urine Protein Negative Urine Glucose (UA) Negative Urine Ketones Negative Urine Blood Negative Urine Nitrite Negative Urine Bilirubin Negative Urine Urobilinogen Negative Ur Leukocyte Esterase Trace H Urine RBC 0 Urine WBC 5 Ur Epithelial Cells 10-15 Calcium Oxalate Crystal Moderate Uric Acid Crystals Many RPR Titer Hepatitis C Antibody HCV Quantitation HCV RNA PCR log cops/ml 08/08/17 08/08/17 08/08/17 07:55 07:55 07:55 WBC RBC Hgb Hct MCV MCH MCHC RDW Plt Count MPV Neutrophils % Lymphocytes % Monocytes % Eosinophils % Basophils % Sodium 140 Potassium 4.4 Chloride 106 Carbon Dioxide 28 Anion Gap 6 L BUN 25 H Creatinine 1.0 Creat Clearance w eGFR 56.56 POC Glucometer Random Glucose 95 Calcium 8.4 L Total Bilirubin 0.4 AST 29 ALT 65 Alkaline Phosphatase 100 Ammonia Total Protein 6.4 Albumin 2.9 L Urine Color Urine Appearance Urine pH Ur Specific [place] Urine Protein Urine Glucose (UA) Urine Ketones Urine Blood Urine Nitrite Urine Bilirubin Urine Urobilinogen Ur Leukocyte Esterase Urine RBC Urine WBC Ur Epithelial Cells Calcium Oxalate Crystal Uric Acid Crystals RPR Titer Nonreactive Hepatitis C Antibody 6.4 H HCV Quantitation HCV RNA PCR log cops/ml 08/09/17 08/10/17 08/10/17 06:45 06:31 08:00 WBC RBC Hgb Hct MCV MCH MCHC RDW Plt Count MPV Neutrophils % Lymphocytes % Monocytes % Eosinophils % Basophils % Sodium Potassium Chloride Carbon Dioxide Anion Gap BUN Creatinine Creat Clearance w eGFR POC Glucometer 107 138 Random Glucose Calcium Total Bilirubin AST ALT Alkaline Phosphatase Ammonia Total Protein Albumin Urine Color Urine Appearance Urine pH Ur Specific [place] Urine Protein Urine Glucose (UA) Urine Ketones Urine Blood Urine Nitrite Urine Bilirubin Urine Urobilinogen Ur Leukocyte Esterase Urine RBC Urine WBC Ur Epithelial Cells Calcium Oxalate Crystal Uric Acid Crystals RPR Titer Hepatitis C Antibody HCV Quantitation Hcv not detected HCV RNA PCR log cops/ml TNP 08/11/17 08/12/17 08/13/17 06:40 07:03 06:39 WBC RBC Hgb Hct MCV MCH MCHC RDW Plt Count MPV Neutrophils % Lymphocytes % Monocytes % Eosinophils % Basophils % Sodium Potassium Chloride Carbon Dioxide Anion Gap BUN Creatinine Creat Clearance w eGFR POC Glucometer 141 107 133 Random Glucose Calcium Total Bilirubin AST ALT Alkaline Phosphatase Ammonia Total Protein Albumin Urine Color Urine Appearance Urine pH Ur Specific [place] Urine Protein Urine Glucose (UA) Urine Ketones Urine Blood Urine Nitrite Urine Bilirubin Urine Urobilinogen Ur Leukocyte Esterase Urine RBC Urine WBC Ur Epithelial Cells Calcium Oxalate Crystal Uric Acid Crystals RPR Titer Hepatitis C Antibody HCV Quantitation HCV RNA PCR log cops/ml 08/14/17 08/14/17 08/14/17 01:29 06:20 07:35 WBC 3.7 L RBC 3.73 Hgb 11.5 Hct 34.4 MCV 92.4 MCH 30.8 MCHC 33.4 RDW 13.6 Plt Count 85 L D MPV 11.3 H Neutrophils % 48.3 Lymphocytes % 36.9 Monocytes % 12.3 H Eosinophils % 2.2 Basophils % 0.3 Sodium Potassium Chloride Carbon Dioxide Anion Gap BUN Creatinine Creat Clearance w eGFR POC Glucometer 151 124 Random Glucose Calcium Total Bilirubin AST ALT Alkaline Phosphatase Ammonia Total Protein Albumin Urine Color Urine Appearance Urine pH Ur Specific [place] Urine Protein Urine Glucose (UA) Urine Ketones Urine Blood Urine Nitrite Urine Bilirubin Urine Urobilinogen Ur Leukocyte Esterase Urine RBC Urine WBC Ur Epithelial Cells Calcium Oxalate Crystal Uric Acid Crystals RPR Titer Hepatitis C Antibody HCV Quantitation HCV RNA PCR log cops/ml 08/14/17 08/14/17 08/15/17 07:35 07:35 06:38 WBC RBC Hgb Hct MCV MCH MCHC RDW Plt Count MPV Neutrophils % Lymphocytes % Monocytes % Eosinophils % Basophils % Sodium 141 Potassium 4.4 Chloride 104 Carbon Dioxide 31 Anion Gap 6 L BUN 18 D Creatinine 1.0 Creat Clearance w eGFR 56.56 POC Glucometer 115 Random Glucose 128 H D Calcium 8.1 L Total Bilirubin 0.2 D AST 29 ALT 57 Alkaline Phosphatase 100 Ammonia 58.06 H Total Protein 6.1 L Albumin 2.7 L Urine Color Urine Appearance Urine pH Ur Specific [place] Urine Protein Urine Glucose (UA) Urine Ketones Urine Blood Urine Nitrite Urine Bilirubin Urine Urobilinogen Ur Leukocyte Esterase Urine RBC Urine WBC Ur Epithelial Cells Calcium Oxalate Crystal Uric Acid Crystals RPR Titer Hepatitis C Antibody HCV Quantitation HCV RNA PCR log cops/ml 08/16/17 08/17/17 06:37 06:25 WBC RBC Hgb Hct MCV MCH MCHC RDW Plt Count MPV Neutrophils % Lymphocytes % Monocytes % Eosinophils % Basophils % Sodium Potassium Chloride Carbon Dioxide Anion Gap BUN Creatinine Creat Clearance w eGFR POC Glucometer 115 111 Random Glucose Calcium Total Bilirubin AST ALT Alkaline Phosphatase Ammonia Total Protein Albumin Urine Color Urine Appearance Urine pH Ur Specific [place] Urine Protein Urine Glucose (UA) Urine Ketones Urine Blood Urine Nitrite Urine Bilirubin Urine Urobilinogen Ur Leukocyte Esterase Urine RBC Urine WBC Ur Epithelial Cells Calcium Oxalate Crystal Uric Acid Crystals RPR Titer Hepatitis C Antibody HCV Quantitation HCV RNA PCR log cops/ml Assessment: 08/17/17 12:39 hepaatic encephalapothy, craving Plan: cont lactulose, increase methadone dose to 195, elevate legs
[2017-08-17] MEDS ORDERED: METHADONE HCL 40 MG DISPERSABLE TABLET PO SCH (12:38)
[2017-08-17] MEDS: HYDROCORTISONE 2.5% TOPICAL CREAM 30 GM TUBE PR SCH (16:15)
[2017-08-17] MEDS: QUEtiapine FUMARATE 100 MG TABLET (FP) PO SCH (21:37)
[2017-08-17] MEDS: THIAMINE HCL 100 MG TABLET (FP) PO SCH (21:37)
[2017-08-17] MEDS: LIDOCAINE PATCH REMOVAL MC SCH (21:38)
[2017-08-17] MEDS: ROSUVASTATIN CA 5 MG TABLET (FP) PO SCH (21:38)
[2017-08-17] MEDS: MONTELUKAST NA 10 MG TABLET PO SCH (21:38)
[2017-08-17] MEDS: NICOTINE POLACRILEX 4 MG GUM BC PRN (21:41)
[2017-08-17] MEDS ORDERED: IBUPROFEN 400 MG TABLET (FP) PO ONE (22:13)
[2017-08-18] MEDS ORDERED: METHADONE HCL 5 MG TABLET ONE (06:13)
[2017-08-18] MEDS ORDERED: METHADONE HCL 10 MG TABLET ONE (06:14)
[2017-08-18] MEDS ORDERED: METHADONE HCL 40 MG DISPERSABLE TABLET ONE (06:14)
[2017-08-18] MEDS: METHADONE 160 MG, METHADONE 30 MG, METHADONE 5 MG PO SCH (06:19)
[2017-08-18] MEDS: metFORMIN HCL 500 MG TABLET (FP) PO SCH (06:19)
[2017-08-18] MEDS ORDERED: PT OWN MED DRAWER 7, Y5N ONE ×2 (08:53→20:56)
[2017-08-18] MEDS: NICOTINE 21 MG/24 HOURS TOPICAL PATCH TD SCH (10:25)
[2017-08-18] MEDS: HYDROCORTISONE 2.5% TOPICAL CREAM 30 GM TUBE PR SCH (10:25)
[2017-08-18] MEDS: PRENATAL VITAMINS W/ FOLIC ACID TABLET (FP) PO SCH (10:25)
[2017-08-18] MEDS: LACTULOSE 20 GM/30 ML UDC (FOR ORAL USE ONLY) PO SCH (10:26)
[2017-08-18] MEDS: ATENOLOL 25 MG TABLET (FP) PO SCH (10:26)
[2017-08-18] MEDS: LIDOCAINE 5% TOPICAL PATCH TP SCH ×2 (10:27)
[2017-08-18] MEDS: ABACAVIR/DOLUTEGRAVIR/LAMIVUDI (TRIUMEQ) TABLET -NF PO SCH (10:31)
[2017-08-18] MEDS: ROSUVASTATIN CA 5 MG TABLET (FP) PO SCH (21:42)
[2017-08-18] MEDS: QUEtiapine FUMARATE 100 MG TABLET (FP) PO SCH (21:42)
[2017-08-18] MEDS: MONTELUKAST NA 10 MG TABLET PO SCH (21:42)
[2017-08-18] MEDS: THIAMINE HCL 100 MG TABLET (FP) PO SCH (21:42)
[2017-08-18] MEDS: LIDOCAINE PATCH REMOVAL MC SCH (21:43)
[2017-08-19] MEDS ORDERED: METHADONE HCL 5 MG TABLET ONE (03:04)
[2017-08-19] MEDS ORDERED: METHADONE HCL 10 MG TABLET ONE (03:04)
[2017-08-19] MEDS ORDERED: METHADONE HCL 40 MG DISPERSABLE TABLET ONE (03:05)
[2017-08-19] MEDS: METHADONE 160 MG, METHADONE 30 MG, METHADONE 5 MG PO SCH (06:09)
[2017-08-19] MEDS: metFORMIN HCL 500 MG TABLET (FP) PO SCH (06:10)
[2017-08-19] MEDS: ATENOLOL 25 MG TABLET (FP) PO SCH (10:39)
[2017-08-19] MEDS: LACTULOSE 20 GM/30 ML UDC (FOR ORAL USE ONLY) PO SCH (10:39)
[2017-08-19] MEDS: HYDROCORTISONE 2.5% TOPICAL CREAM 30 GM TUBE PR SCH (10:39)
[2017-08-19] MEDS: PRENATAL VITAMINS W/ FOLIC ACID TABLET (FP) PO SCH (10:39)
[2017-08-19] MEDS: NICOTINE 21 MG/24 HOURS TOPICAL PATCH TD SCH (10:40)
[2017-08-19] MEDS: ABACAVIR/DOLUTEGRAVIR/LAMIVUDI (TRIUMEQ) TABLET -NF PO SCH (10:42)
[2017-08-19] MEDS ORDERED: PT OWN MED DRAWER 7, Y5N ONE ×2 (10:42→11:21)
[2017-08-19] MEDS: LIDOCAINE 5% TOPICAL PATCH TP SCH ×2 (10:42)
[2017-08-19] MEDS: QUEtiapine FUMARATE 100 MG TABLET (FP) PO SCH (21:48)
[2017-08-19] MEDS: MONTELUKAST NA 10 MG TABLET PO SCH (21:48)
[2017-08-19] MEDS: THIAMINE HCL 100 MG TABLET (FP) PO SCH (21:48)
[2017-08-19] MEDS: ROSUVASTATIN CA 5 MG TABLET (FP) PO SCH (21:49)
[2017-08-19] MEDS: LIDOCAINE PATCH REMOVAL MC SCH (21:49)
[2017-08-20] MEDS ORDERED: METHADONE HCL 10 MG TABLET ONE (03:32)
[2017-08-20] MEDS ORDERED: METHADONE HCL 5 MG TABLET ONE (03:32)
[2017-08-20] MEDS ORDERED: METHADONE HCL 40 MG DISPERSABLE TABLET ONE (03:33)
[2017-08-20] MEDS: METHADONE 160 MG, METHADONE 30 MG, METHADONE 5 MG PO SCH (06:25)
[2017-08-20] MEDS: metFORMIN HCL 500 MG TABLET (FP) PO SCH (06:26)
[2017-08-20] MEDS: LACTULOSE 20 GM/30 ML UDC (FOR ORAL USE ONLY) PO SCH (10:12)
[2017-08-20] MEDS: HYDROCORTISONE 2.5% TOPICAL CREAM 30 GM TUBE PR SCH (10:12)
[2017-08-20] MEDS: LIDOCAINE 5% TOPICAL PATCH TP SCH ×2 (10:13)
[2017-08-20] MEDS: PRENATAL VITAMINS W/ FOLIC ACID TABLET (FP) PO SCH (10:13)
[2017-08-20] MEDS: NICOTINE 21 MG/24 HOURS TOPICAL PATCH TD SCH (10:13)
[2017-08-20] MEDS: ABACAVIR/DOLUTEGRAVIR/LAMIVUDI (TRIUMEQ) TABLET -NF PO SCH (10:13)
[2017-08-20] MEDS: ATENOLOL 25 MG TABLET (FP) PO SCH (10:14)
[2017-08-20] MEDS: THIAMINE HCL 100 MG TABLET (FP) PO SCH (21:52)
[2017-08-20] MEDS: MONTELUKAST NA 10 MG TABLET PO SCH (21:52)
[2017-08-20] MEDS: QUEtiapine FUMARATE 100 MG TABLET (FP) PO SCH (21:52)
[2017-08-20] MEDS: LIDOCAINE PATCH REMOVAL MC SCH (21:53)
[2017-08-20] MEDS: ROSUVASTATIN CA 5 MG TABLET (FP) PO SCH (21:54)
[2017-08-21] MEDS ORDERED: METHADONE HCL 5 MG TABLET ONE (05:53)
[2017-08-21] MEDS ORDERED: METHADONE HCL 40 MG DISPERSABLE TABLET ONE (05:54)
[2017-08-21] MEDS ORDERED: METHADONE HCL 10 MG TABLET ONE (05:54)
[2017-08-21] MEDS: METHADONE 160 MG, METHADONE 30 MG, METHADONE 5 MG PO SCH (06:48)
[2017-08-21] MEDS: metFORMIN HCL 500 MG TABLET (FP) PO SCH (06:50)
[2017-08-21] MEDS: ATENOLOL 25 MG TABLET (FP) PO SCH (10:43)
[2017-08-21] MEDS: NICOTINE 21 MG/24 HOURS TOPICAL PATCH TD SCH (10:43)
[2017-08-21] MEDS: LACTULOSE 20 GM/30 ML UDC (FOR ORAL USE ONLY) PO SCH (10:43)
[2017-08-21] MEDS: PRENATAL VITAMINS W/ FOLIC ACID TABLET (FP) PO SCH (10:43)
[2017-08-21] MEDS: LIDOCAINE 5% TOPICAL PATCH TP SCH ×2 (10:44)
[2017-08-21] MEDS ORDERED: PT OWN MED DRAWER 7, Y5N ONE (10:45)
[2017-08-21] MEDS: HYDROCORTISONE 2.5% TOPICAL CREAM 30 GM TUBE PR SCH (11:24)
[2017-08-21] MEDS: ABACAVIR/DOLUTEGRAVIR/LAMIVUDI (TRIUMEQ) TABLET -NF PO SCH (12:14)
[2017-08-21] MEDS: QUEtiapine FUMARATE 25 MG TABLET (FP) PO SCH ×2 (17:20→21:48)
[2017-08-21] MEDS: MONTELUKAST NA 10 MG TABLET PO SCH (21:48)
[2017-08-21] MEDS: THIAMINE HCL 100 MG TABLET (FP) PO SCH (21:48)
[2017-08-21] MEDS: QUEtiapine FUMARATE 100 MG TABLET (FP) PO SCH (21:48)
[2017-08-21] MEDS: ROSUVASTATIN CA 5 MG TABLET (FP) PO SCH (21:49)
[2017-08-21] MEDS: LIDOCAINE PATCH REMOVAL MC SCH (21:49)
[2017-08-22] MEDS ORDERED: METHADONE HCL 5 MG TABLET ONE (03:19)
[2017-08-22] MEDS ORDERED: METHADONE HCL 40 MG DISPERSABLE TABLET ONE (03:20)
[2017-08-22] MEDS ORDERED: METHADONE HCL 10 MG TABLET ONE (03:20)
[2017-08-22] MEDS: METHADONE 160 MG, METHADONE 30 MG, METHADONE 5 MG PO SCH (06:29)
[2017-08-22] MEDS: metFORMIN HCL 500 MG TABLET (FP) PO SCH (06:31)
[2017-08-22] MEDS: LIDOCAINE 5% TOPICAL PATCH TP SCH ×2 (10:01)
[2017-08-22] MEDS: QUEtiapine FUMARATE 25 MG TABLET (FP) PO SCH ×2 (10:02→21:39)
[2017-08-22] MEDS: NICOTINE 21 MG/24 HOURS TOPICAL PATCH TD SCH (10:02)
[2017-08-22] MEDS: PRENATAL VITAMINS W/ FOLIC ACID TABLET (FP) PO SCH (10:02)
[2017-08-22] MEDS: ATENOLOL 25 MG TABLET (FP) PO SCH (10:02)
[2017-08-22] MEDS: LACTULOSE 20 GM/30 ML UDC (FOR ORAL USE ONLY) PO SCH (10:03)
[2017-08-22] MEDS: HYDROCORTISONE 2.5% TOPICAL CREAM 30 GM TUBE PR SCH (10:03)
[2017-08-22] MEDS: ABACAVIR/DOLUTEGRAVIR/LAMIVUDI (TRIUMEQ) TABLET -NF PO SCH (10:03)
[2017-08-22] MEDS: QUEtiapine FUMARATE 100 MG TABLET (FP) PO SCH (20:47)
[2017-08-22] MEDS: THIAMINE HCL 100 MG TABLET (FP) PO SCH (21:39)
[2017-08-22] MEDS: LIDOCAINE PATCH REMOVAL MC SCH (21:40)
[2017-08-22] MEDS: MONTELUKAST NA 10 MG TABLET PO SCH (21:40)
[2017-08-22] MEDS: ROSUVASTATIN CA 5 MG TABLET (FP) PO SCH (21:41)
[2017-08-22] MEDS ORDERED: PT OWN MED DRAWER 7, Y5N ONE (21:42)
[2017-08-23] MEDS ORDERED: METHADONE HCL 5 MG TABLET ONE (03:11)
[2017-08-23] MEDS ORDERED: METHADONE HCL 40 MG DISPERSABLE TABLET ONE (03:12)
[2017-08-23] MEDS ORDERED: METHADONE HCL 10 MG TABLET ONE (03:12)
[2017-08-23] MEDS: METHADONE 160 MG, METHADONE 30 MG, METHADONE 5 MG PO SCH (06:35)
[2017-08-23] MEDS: metFORMIN HCL 500 MG TABLET (FP) PO SCH (06:36)
[2017-08-23] MEDS: PRENATAL VITAMINS W/ FOLIC ACID TABLET (FP) PO SCH (09:51)
[2017-08-23] MEDS: HYDROCORTISONE 2.5% TOPICAL CREAM 30 GM TUBE PR SCH (09:51)
[2017-08-23] MEDS: ATENOLOL 25 MG TABLET (FP) PO SCH (09:51)
[2017-08-23] MEDS: LACTULOSE 20 GM/30 ML UDC (FOR ORAL USE ONLY) PO SCH (09:51)
[2017-08-23] MEDS: ABACAVIR/DOLUTEGRAVIR/LAMIVUDI (TRIUMEQ) TABLET -NF PO SCH (09:51)
[2017-08-23] MEDS: QUEtiapine FUMARATE 25 MG TABLET (FP) PO SCH ×2 (09:51→21:32)
[2017-08-23] MEDS: LIDOCAINE 5% TOPICAL PATCH TP SCH ×2 (09:52)
[2017-08-23] MEDS: NICOTINE 21 MG/24 HOURS TOPICAL PATCH TD SCH (09:53)
[2017-08-23] MEDS: MAG HYDROX/AL HYDROX/SIMETH 30 ML UNIT-DOSE CUP PO PRN (14:58)
[2017-08-23] MEDS: QUEtiapine FUMARATE 100 MG TABLET (FP) PO SCH (20:32)
[2017-08-23] MEDS: MONTELUKAST NA 10 MG TABLET PO SCH (21:32)
[2017-08-23] MEDS: THIAMINE HCL 100 MG TABLET (FP) PO SCH (21:32)
[2017-08-23] MEDS: ROSUVASTATIN CA 5 MG TABLET (FP) PO SCH (21:34)
[2017-08-23] MEDS: LIDOCAINE PATCH REMOVAL MC SCH (21:34)
[2017-08-23] MEDS ORDERED: PT OWN MED DRAWER 7, Y5N ONE (21:54)
[2017-08-24] MEDS ORDERED: METHADONE HCL 5 MG TABLET ONE (06:13)
[2017-08-24] MEDS ORDERED: METHADONE HCL 40 MG DISPERSABLE TABLET ONE (06:14)
[2017-08-24] MEDS ORDERED: METHADONE HCL 10 MG TABLET ONE (06:14)
[2017-08-24] MEDS: METHADONE 160 MG, METHADONE 30 MG, METHADONE 5 MG PO SCH (06:17)
[2017-08-24] MEDS: metFORMIN HCL 500 MG TABLET (FP) PO SCH (06:18)
--- NOTE | 2017-08-24 09:55 | PN ---
Psychiatric Progress Note Vital Signs: Vital Signs Period Temp Pulse Resp BP Sys/Miller Pulse Ox Last 24 Hr 97.9 F 69 18-18 136/68 Date of Session: 08/24/17 Current Medications: Active Medications Generic Name Dose Route Start Last Admin Trade Name Freq PRN Reason Stop Dose Admin Abacavir/Dolutegravir/Lamivudine 1 each 08/08/17 10:00 08/23/17 09:51 Triumeq (Non-Formulary) PO 1 each DAILY SRIDHAR Administration Al Hydroxide/Mg Hydroxide 30 ml 08/07/17 21:04 08/23/17 14:58 Mylanta Oral Suspension - PO 30 ml Q6H PRN Administration DYSPEPSIA Atenolol 25 mg 08/08/17 10:00 08/23/17 09:51 Tenormin - PO 25 mg DAILY SRIDHAR Administration Eucalyptus/Menthol/Phenol/Sorbitol 1 each 08/07/17 21:04 Cepastat Lozenge - MM Q4H PRN SORE THROAT Hydrocortisone 1 applic 08/17/17 14:03 08/23/17 09:51 Anusol 2.5% Hc Cream - MI Not Given DAILY SRIDHAR Lactulose 20 gm 08/18/17 10:00 08/23/17 09:51 Cephulac (Oral Use) PO 20 gm DAILY SRIDHAR Administration Lidocaine 1 patch 08/14/17 11:22 08/23/17 09:52 Lidoderm Patch - TP 1 patch DAILY SRIDHAR Administration Lidocaine 1 patch 08/14/17 11:23 08/23/17 09:52 Lidoderm Patch - TP 1 patch DAILY SRIDHAR Administration Loperamide HCl 4 mg 08/07/17 21:04 Imodium - PO Q6H PRN DIARRHEA Magnesium Citrate 300 ml 08/07/17 21:04 08/13/17 18:41 Citroma - PO 300 ml Q48H PRN Administration CONSTIPATION Magnesium Hydroxide 30 ml 08/07/17 21:04 08/10/17 17:58 Milk Of Magnesia - PO 30 ml DAILY PRN Administration CONSTIPATION Metformin HCl 500 mg 08/08/17 07:00 08/24/17 06:18 Glucophage - PO 500 mg AM SRIDHAR Administration Methadone HCl 160 mg/ 195 mg 08/24/17 06:00 08/24/17 06:17 Methadone HCl 30 mg/ Methadone PO 08/31/17 05:59 195 mg HCl 5 mg DAILY@0600 [facility] Administration Miscellaneous 1 each 08/14/17 22:00 08/23/17 21:34 Lidoderm Patch Removal MC Not Given DAILY@2200 [facility] Montelukast Sodium 10 mg 08/08/17 22:00 08/23/17 21:32 Singulair - PO 10 mg HS SRIDHAR Administration Nicotine 21 mg 08/08/17 10:00 08/23/17 09:53 Nicoderm Patch - TD 21 mg DAILY SRIDHAR Administration Nicotine Polacrilex 4 mg 08/07/17 21:04 08/17/17 21:41 Nicorette Gum - BC 4 mg Q2H PRN Administration NICOTINE REPLACEMENT RX Multivit/Folic Acid/Iron 1 tab 08/08/17 10:00 08/23/17 09:51 Vitamins (Sjr) - PO 1 tab DAILY SRIDHAR Administration Quetiapine Fumarate 100 mg 08/16/17 20:00 08/23/17 20:32 Seroquel - PO 100 mg DAILY@2000 [facility] Administration Quetiapine Fumarate 25 mg 08/21/17 15:46 08/23/17 21:32 Seroquel - PO 25 mg BID SRIDHAR Administration Rosuvastatin Calcium 5 mg 08/07/17 22:00 08/23/17 21:34 Crestor - PO 5 mg HS SRIDHAR Administration Thiamine HCl 100 mg 08/07/17 22:00 08/23/17 21:32 Vitamin B1 - PO 100 mg HS SRIDHAR Administration Current Side Effect: No Lab tests ordered: No Lab tests reviewed: Yes Total face to face time:: 30 Psychiatric Treatment Plan - Problem List (1) Nicotine dependence Current Visit: Yes (2) Methadone maintenance therapy patient Current Visit: Yes (3) Type 2 diabetes mellitus Current Visit: Yes (4) HIV (human immunodeficiency virus infection) Current Visit: Yes (5) Benzodiazepine dependence Current Visit: Yes (6) GERD (gastroesophageal reflux disease) Current Visit: Yes (7) HTN (hypertension) Current Visit: Yes Qualifiers: Hypertension type: essential hypertension Qualified Code(s): I10 - Essential (primary) hypertension (8) Hepatitis C antibody positive in blood Current Visit: Yes (9) PTSD (post-traumatic stress disorder) Current Visit: Yes
[2017-08-24] MEDS: NICOTINE 21 MG/24 HOURS TOPICAL PATCH TD SCH (10:34)
[2017-08-24] MEDS: HYDROCORTISONE 2.5% TOPICAL CREAM 30 GM TUBE PR SCH (10:34)
[2017-08-24] MEDS: ATENOLOL 25 MG TABLET (FP) PO SCH (10:34)
[2017-08-24] MEDS: PRENATAL VITAMINS W/ FOLIC ACID TABLET (FP) PO SCH (10:34)
[2017-08-24] MEDS: LIDOCAINE 5% TOPICAL PATCH TP SCH ×2 (10:34)
[2017-08-24] MEDS: LACTULOSE 20 GM/30 ML UDC (FOR ORAL USE ONLY) PO SCH (10:34)
[2017-08-24] MEDS: QUEtiapine FUMARATE 25 MG TABLET (FP) PO SCH ×2 (10:35→21:29)
[2017-08-24] MEDS ORDERED: PT OWN MED DRAWER 7, Y5N ONE ×2 (10:37→20:19)
[2017-08-24] MEDS: ABACAVIR/DOLUTEGRAVIR/LAMIVUDI (TRIUMEQ) TABLET -NF PO SCH (10:37)
[2017-08-24] MEDS: MAG HYDROX/AL HYDROX/SIMETH 30 ML UNIT-DOSE CUP PO PRN (18:40)
[2017-08-24] MEDS: QUEtiapine FUMARATE 100 MG TABLET (FP) PO SCH (20:30)
[2017-08-24] MEDS: THIAMINE HCL 100 MG TABLET (FP) PO SCH (21:29)
[2017-08-24] MEDS: MONTELUKAST NA 10 MG TABLET PO SCH (21:29)
[2017-08-24] MEDS: ROSUVASTATIN CA 5 MG TABLET (FP) PO SCH (21:29)
[2017-08-24] MEDS: LIDOCAINE PATCH REMOVAL MC SCH (21:30)
[2017-08-25] MEDS ORDERED: METHADONE HCL 10 MG TABLET ONE (05:57)
[2017-08-25] MEDS ORDERED: METHADONE HCL 5 MG TABLET ONE (05:57)
[2017-08-25] MEDS ORDERED: METHADONE HCL 40 MG DISPERSABLE TABLET ONE (05:58)
[2017-08-25] MEDS: METHADONE 160 MG, METHADONE 30 MG, METHADONE 5 MG PO SCH (06:33)
[2017-08-25] MEDS: metFORMIN HCL 500 MG TABLET (FP) PO SCH (06:35)
[2017-08-25] MEDS: LACTULOSE 20 GM/30 ML UDC (FOR ORAL USE ONLY) PO SCH (10:21)
[2017-08-25] MEDS: LIDOCAINE 5% TOPICAL PATCH TP SCH ×2 (10:22)
[2017-08-25] MEDS: HYDROCORTISONE 2.5% TOPICAL CREAM 30 GM TUBE PR SCH (10:22)
[2017-08-25] MEDS: ABACAVIR/DOLUTEGRAVIR/LAMIVUDI (TRIUMEQ) TABLET -NF PO SCH (10:23)
[2017-08-25] MEDS: PRENATAL VITAMINS W/ FOLIC ACID TABLET (FP) PO SCH (10:24)
[2017-08-25] MEDS: QUEtiapine FUMARATE 25 MG TABLET (FP) PO SCH ×2 (10:24→21:38)
[2017-08-25] MEDS: ATENOLOL 25 MG TABLET (FP) PO SCH (10:24)
[2017-08-25] MEDS: NICOTINE 21 MG/24 HOURS TOPICAL PATCH TD SCH (10:24)
[2017-08-25] MEDS ORDERED: PT OWN MED DRAWER 7, Y5N ONE (15:35)
[2017-08-25] MEDS: QUEtiapine FUMARATE 100 MG TABLET (FP) PO SCH (21:38)
[2017-08-25] MEDS: THIAMINE HCL 100 MG TABLET (FP) PO SCH (21:38)
[2017-08-25] MEDS: MONTELUKAST NA 10 MG TABLET PO SCH (21:38)
[2017-08-25] MEDS: ROSUVASTATIN CA 5 MG TABLET (FP) PO SCH (21:39)
[2017-08-25] MEDS: LIDOCAINE PATCH REMOVAL MC SCH (21:39)
[2017-08-26] MEDS ORDERED: METHADONE HCL 5 MG TABLET ONE (03:28)
[2017-08-26] MEDS ORDERED: METHADONE HCL 10 MG TABLET ONE (03:28)
[2017-08-26] MEDS ORDERED: METHADONE HCL 40 MG DISPERSABLE TABLET ONE (03:28)
[2017-08-26] MEDS: METHADONE 160 MG, METHADONE 30 MG, METHADONE 5 MG PO SCH (06:22)
[2017-08-26] MEDS: metFORMIN HCL 500 MG TABLET (FP) PO SCH (06:24)
[2017-08-26] MEDS ORDERED: PT OWN MED DRAWER 7, Y5N ONE (08:41)
[2017-08-26] MEDS: ABACAVIR/DOLUTEGRAVIR/LAMIVUDI (TRIUMEQ) TABLET -NF PO SCH (10:17)
[2017-08-26] MEDS: NICOTINE 21 MG/24 HOURS TOPICAL PATCH TD SCH (10:17)
[2017-08-26] MEDS: QUEtiapine FUMARATE 25 MG TABLET (FP) PO SCH ×2 (10:17→21:42)
[2017-08-26] MEDS: PRENATAL VITAMINS W/ FOLIC ACID TABLET (FP) PO SCH (10:17)
[2017-08-26] MEDS: ATENOLOL 25 MG TABLET (FP) PO SCH (10:17)
[2017-08-26] MEDS: LACTULOSE 20 GM/30 ML UDC (FOR ORAL USE ONLY) PO SCH (10:17)
[2017-08-26] MEDS: LIDOCAINE 5% TOPICAL PATCH TP SCH ×2 (10:18)
[2017-08-26] MEDS: HYDROCORTISONE 2.5% TOPICAL CREAM 30 GM TUBE PR SCH (10:19)
[2017-08-26] MEDS: MAG HYDROX/ALH/SMC/DPHA/LIDO 240 ML MOUTHWASH MM SCH ×3 (15:00→23:23)
[2017-08-26] MEDS: QUEtiapine FUMARATE 100 MG TABLET (FP) PO SCH (20:07)
[2017-08-26] MEDS: THIAMINE HCL 100 MG TABLET (FP) PO SCH (21:42)
[2017-08-26] MEDS: ROSUVASTATIN CA 5 MG TABLET (FP) PO SCH (21:42)
[2017-08-26] MEDS: LIDOCAINE PATCH REMOVAL MC SCH (21:42)
[2017-08-26] MEDS: MONTELUKAST NA 10 MG TABLET PO SCH (21:42)
[2017-08-27] MEDS ORDERED: METHADONE HCL 10 MG TABLET ONE (03:18)
[2017-08-27] MEDS ORDERED: METHADONE HCL 5 MG TABLET ONE (03:18)
[2017-08-27] MEDS ORDERED: METHADONE HCL 40 MG DISPERSABLE TABLET ONE (03:19)
[2017-08-27] MEDS: METHADONE 160 MG, METHADONE 30 MG, METHADONE 5 MG PO SCH (06:19)
[2017-08-27] MEDS: metFORMIN HCL 500 MG TABLET (FP) PO SCH (06:24)
[2017-08-27] MEDS: MAG HYDROX/ALH/SMC/DPHA/LIDO 240 ML MOUTHWASH MM SCH ×3 (07:14→18:25)
[2017-08-27] MEDS: PRENATAL VITAMINS W/ FOLIC ACID TABLET (FP) PO SCH (09:04)
[2017-08-27] MEDS: QUEtiapine FUMARATE 25 MG TABLET (FP) PO SCH ×2 (09:04→21:26)
[2017-08-27] MEDS: HYDROCORTISONE 2.5% TOPICAL CREAM 30 GM TUBE PR SCH (09:05)
[2017-08-27] MEDS: ABACAVIR/DOLUTEGRAVIR/LAMIVUDI (TRIUMEQ) TABLET -NF PO SCH (09:05)
[2017-08-27] MEDS: LACTULOSE 20 GM/30 ML UDC (FOR ORAL USE ONLY) PO SCH (09:05)
[2017-08-27] MEDS: NICOTINE 21 MG/24 HOURS TOPICAL PATCH TD SCH (09:05)
[2017-08-27] MEDS: LIDOCAINE 5% TOPICAL PATCH TP SCH ×2 (09:06)
[2017-08-27] MEDS: ATENOLOL 25 MG TABLET (FP) PO SCH (09:08)
[2017-08-27] MEDS: THIAMINE HCL 100 MG TABLET (FP) PO SCH (21:24)
[2017-08-27] MEDS: MONTELUKAST NA 10 MG TABLET PO SCH (21:24)
[2017-08-27] MEDS: QUEtiapine FUMARATE 100 MG TABLET (FP) PO SCH (21:25)
[2017-08-27] MEDS: ROSUVASTATIN CA 5 MG TABLET (FP) PO SCH (21:27)
[2017-08-27] MEDS: LIDOCAINE PATCH REMOVAL MC SCH (21:27)
[2017-08-28] MEDS: MAG HYDROX/ALH/SMC/DPHA/LIDO 240 ML MOUTHWASH MM SCH ×4 (00:18→18:26)
[2017-08-28] MEDS ORDERED: METHADONE HCL 40 MG DISPERSABLE TABLET ONE (03:24)
[2017-08-28] MEDS ORDERED: METHADONE HCL 5 MG TABLET ONE (03:24)
[2017-08-28] MEDS ORDERED: METHADONE HCL 10 MG TABLET ONE (03:24)
[2017-08-28] MEDS: METHADONE 160 MG, METHADONE 30 MG, METHADONE 5 MG PO SCH (06:10)
[2017-08-28] MEDS: metFORMIN HCL 500 MG TABLET (FP) PO SCH (06:10)
[2017-08-28] MEDS ORDERED: PT OWN MED DRAWER 7, Y5N ONE ×2 (07:51→08:53)
[2017-08-28] MEDS: ATENOLOL 25 MG TABLET (FP) PO SCH (10:17)
[2017-08-28] MEDS: LACTULOSE 20 GM/30 ML UDC (FOR ORAL USE ONLY) PO SCH (10:17)
[2017-08-28] MEDS: PRENATAL VITAMINS W/ FOLIC ACID TABLET (FP) PO SCH (10:17)
[2017-08-28] MEDS: ABACAVIR/DOLUTEGRAVIR/LAMIVUDI (TRIUMEQ) TABLET -NF PO SCH (10:17)
[2017-08-28] MEDS: QUEtiapine FUMARATE 25 MG TABLET (FP) PO SCH ×2 (10:17→21:27)
[2017-08-28] MEDS: HYDROCORTISONE 2.5% TOPICAL CREAM 30 GM TUBE PR SCH (10:18)
[2017-08-28] MEDS: LIDOCAINE 5% TOPICAL PATCH TP SCH ×2 (10:19)
[2017-08-28] MEDS: NICOTINE 21 MG/24 HOURS TOPICAL PATCH TD SCH (10:19)
[2017-08-28] MEDS: MAG HYDROX/AL HYDROX/SIMETH 30 ML UNIT-DOSE CUP PO PRN (18:28)
[2017-08-28] MEDS: THIAMINE HCL 100 MG TABLET (FP) PO SCH (21:27)
[2017-08-28] MEDS: QUEtiapine FUMARATE 100 MG TABLET (FP) PO SCH (21:27)
[2017-08-28] MEDS: MONTELUKAST NA 10 MG TABLET PO SCH (21:27)
[2017-08-28] MEDS: ROSUVASTATIN CA 5 MG TABLET (FP) PO SCH (21:28)
[2017-08-28] MEDS: LIDOCAINE PATCH REMOVAL MC SCH (21:59)
[2017-08-28] MEDS: SIMETHICONE 80 MG TAB.CHEW (FP) PO PRN (22:01)
[2017-08-29] MEDS: MAG HYDROX/ALH/SMC/DPHA/LIDO 240 ML MOUTHWASH MM SCH ×5 (00:32→23:31)
[2017-08-29] MEDS ORDERED: METHADONE HCL 5 MG TABLET ONE (05:55)
[2017-08-29] MEDS ORDERED: METHADONE HCL 40 MG DISPERSABLE TABLET ONE (05:56)
[2017-08-29] MEDS ORDERED: METHADONE HCL 10 MG TABLET ONE (05:56)
[2017-08-29] MEDS: metFORMIN HCL 500 MG TABLET (FP) PO SCH (06:06)
[2017-08-29] MEDS: METHADONE 160 MG, METHADONE 30 MG, METHADONE 5 MG PO SCH (06:06)
[2017-08-29] MEDS: PRENATAL VITAMINS W/ FOLIC ACID TABLET (FP) PO SCH (09:53)
[2017-08-29] MEDS: LACTULOSE 20 GM/30 ML UDC (FOR ORAL USE ONLY) PO SCH (09:53)
[2017-08-29] MEDS: ATENOLOL 25 MG TABLET (FP) PO SCH (09:53)
[2017-08-29] MEDS: ABACAVIR/DOLUTEGRAVIR/LAMIVUDI (TRIUMEQ) TABLET -NF PO SCH (09:53)
[2017-08-29] MEDS: QUEtiapine FUMARATE 25 MG TABLET (FP) PO SCH ×2 (09:53→21:26)
[2017-08-29] MEDS: HYDROCORTISONE 2.5% TOPICAL CREAM 30 GM TUBE PR SCH (09:54)
[2017-08-29] MEDS: NICOTINE 21 MG/24 HOURS TOPICAL PATCH TD SCH (09:55)
[2017-08-29] MEDS: LIDOCAINE 5% TOPICAL PATCH TP SCH ×2 (09:55)
[2017-08-29] MEDS: QUEtiapine FUMARATE 100 MG TABLET (FP) PO SCH (21:00)
[2017-08-29] MEDS: MONTELUKAST NA 10 MG TABLET PO SCH (21:25)
[2017-08-29] MEDS: LIDOCAINE PATCH REMOVAL MC SCH (21:26)
[2017-08-29] MEDS: THIAMINE HCL 100 MG TABLET (FP) PO SCH (21:26)
[2017-08-29] MEDS: ROSUVASTATIN CA 5 MG TABLET (FP) PO SCH (21:26)
[2017-08-29] MEDS: SIMETHICONE 80 MG TAB.CHEW (FP) PO PRN (21:27)
[2017-08-30] MEDS ORDERED: METHADONE HCL 5 MG TABLET ONE (05:54)
[2017-08-30] MEDS ORDERED: METHADONE HCL 10 MG TABLET ONE (05:54)
[2017-08-30] MEDS ORDERED: METHADONE HCL 40 MG DISPERSABLE TABLET ONE (05:55)
[2017-08-30] MEDS: metFORMIN HCL 500 MG TABLET (FP) PO SCH (06:29)
[2017-08-30] MEDS: METHADONE 160 MG, METHADONE 30 MG, METHADONE 5 MG PO SCH (06:30)
[2017-08-30] MEDS: MAG HYDROX/ALH/SMC/DPHA/LIDO 240 ML MOUTHWASH MM SCH ×4 (06:33→23:01)
[2017-08-30] MEDS: NICOTINE 21 MG/24 HOURS TOPICAL PATCH TD SCH (10:04)
[2017-08-30] MEDS: LIDOCAINE 5% TOPICAL PATCH TP SCH ×2 (10:05)
[2017-08-30] MEDS: LACTULOSE 20 GM/30 ML UDC (FOR ORAL USE ONLY) PO SCH (10:05)
[2017-08-30] MEDS: PRENATAL VITAMINS W/ FOLIC ACID TABLET (FP) PO SCH (10:05)
[2017-08-30] MEDS: QUEtiapine FUMARATE 25 MG TABLET (FP) PO SCH ×2 (10:05→21:29)
[2017-08-30] MEDS: ATENOLOL 25 MG TABLET (FP) PO SCH (10:05)
[2017-08-30] MEDS: ABACAVIR/DOLUTEGRAVIR/LAMIVUDI (TRIUMEQ) TABLET -NF PO SCH (10:06)
[2017-08-30] MEDS: HYDROCORTISONE 2.5% TOPICAL CREAM 30 GM TUBE PR SCH (10:06)
[2017-08-30] MEDS ORDERED: PT OWN MED DRAWER 7, Y5N ONE (16:55)
--- NOTE | 2017-08-30 19:10 | PN ---
[facility] Progress Note Note: PAIN MUSCLE SPASM OF BODY AND EXTREMITIES,FLEXERIL 5 MGS PO ORDERED,CLOSE MONITORING,
[2017-08-30] MEDS: QUEtiapine FUMARATE 100 MG TABLET (FP) PO SCH (20:27)
[2017-08-30] MEDS ORDERED: CYCLOBENZAPRINE HCL 5 MG TABLET PO ONE (20:30)
[2017-08-30] MEDS: MONTELUKAST NA 10 MG TABLET PO SCH (21:29)
[2017-08-30] MEDS: LIDOCAINE PATCH REMOVAL MC SCH (21:29)
[2017-08-30] MEDS: THIAMINE HCL 100 MG TABLET (FP) PO SCH (21:29)
[2017-08-30] MEDS: ROSUVASTATIN CA 5 MG TABLET (FP) PO SCH (21:29)
[2017-08-30] MEDS: SIMETHICONE 80 MG TAB.CHEW (FP) PO PRN (21:30)
[2017-08-31] MEDS ORDERED: PT OWN MED DRAWER 7, Y5N ONE ×3 (03:27→20:04)
[2017-08-31] MEDS ORDERED: METHADONE HCL 5 MG TABLET ONE (06:15)
[2017-08-31] MEDS ORDERED: METHADONE HCL 10 MG TABLET ONE (06:16)
[2017-08-31] MEDS ORDERED: METHADONE HCL 40 MG DISPERSABLE TABLET ONE (06:16)
[2017-08-31] MEDS: METHADONE 160 MG, METHADONE 30 MG, METHADONE 5 MG PO SCH (06:28)
[2017-08-31] MEDS: metFORMIN HCL 500 MG TABLET (FP) PO SCH (06:29)
[2017-08-31] MEDS: MAG HYDROX/ALH/SMC/DPHA/LIDO 240 ML MOUTHWASH MM SCH ×4 (06:29→23:37)
[2017-08-31] MEDS: LIDOCAINE 5% TOPICAL PATCH TP SCH ×2 (10:14)
[2017-08-31] MEDS: HYDROCORTISONE 2.5% TOPICAL CREAM 30 GM TUBE PR SCH (10:15)
[2017-08-31] MEDS: LACTULOSE 20 GM/30 ML UDC (FOR ORAL USE ONLY) PO SCH (10:15)
[2017-08-31] MEDS: ABACAVIR/DOLUTEGRAVIR/LAMIVUDI (TRIUMEQ) TABLET -NF PO SCH (10:16)
[2017-08-31] MEDS: ATENOLOL 25 MG TABLET (FP) PO SCH (10:16)
[2017-08-31] MEDS: PRENATAL VITAMINS W/ FOLIC ACID TABLET (FP) PO SCH (10:16)
[2017-08-31] MEDS: QUEtiapine FUMARATE 25 MG TABLET (FP) PO SCH ×2 (10:16→21:43)
[2017-08-31] MEDS: NICOTINE 21 MG/24 HOURS TOPICAL PATCH TD SCH (10:17)
[2017-08-31] MEDS ORDERED: CYCLOBENZAPRINE HCL 5 MG TABLET PO ONE (19:06)
[2017-08-31] MEDS: QUEtiapine FUMARATE 100 MG TABLET (FP) PO SCH (20:02)
[2017-08-31] MEDS: MONTELUKAST NA 10 MG TABLET PO SCH (21:43)
[2017-08-31] MEDS: ROSUVASTATIN CA 5 MG TABLET (FP) PO SCH (21:43)
[2017-08-31] MEDS: THIAMINE HCL 100 MG TABLET (FP) PO SCH (21:43)
[2017-08-31] MEDS: LIDOCAINE PATCH REMOVAL MC SCH (21:43)
[2017-09-01] MEDS ORDERED: METHADONE HCL 5 MG TABLET ONE (03:35)
[2017-09-01] MEDS ORDERED: METHADONE HCL 40 MG DISPERSABLE TABLET ONE (03:35)
[2017-09-01] MEDS ORDERED: METHADONE HCL 10 MG TABLET ONE (03:35)
[2017-09-01] MEDS: METHADONE 160 MG, METHADONE 30 MG, METHADONE 5 MG PO SCH (06:22)
[2017-09-01] MEDS: metFORMIN HCL 500 MG TABLET (FP) PO SCH (06:23)
[2017-09-01] MEDS: MAG HYDROX/ALH/SMC/DPHA/LIDO 240 ML MOUTHWASH MM SCH ×3 (06:24→17:18)
[2017-09-01] MEDS ORDERED: PT OWN MED DRAWER 7, Y5N ONE ×4 (07:13→17:18)
[2017-09-01] MEDS: ATENOLOL 25 MG TABLET (FP) PO SCH (10:18)
[2017-09-01] MEDS: HYDROCORTISONE 2.5% TOPICAL CREAM 30 GM TUBE PR SCH (10:18)
[2017-09-01] MEDS: ABACAVIR/DOLUTEGRAVIR/LAMIVUDI (TRIUMEQ) TABLET -NF PO SCH (10:18)
[2017-09-01] MEDS: PRENATAL VITAMINS W/ FOLIC ACID TABLET (FP) PO SCH (10:18)
[2017-09-01] MEDS: QUEtiapine FUMARATE 25 MG TABLET (FP) PO SCH ×2 (10:18→21:36)
[2017-09-01] MEDS: LACTULOSE 20 GM/30 ML UDC (FOR ORAL USE ONLY) PO SCH (10:18)
[2017-09-01] MEDS: NICOTINE 21 MG/24 HOURS TOPICAL PATCH TD SCH (10:19)
[2017-09-01] MEDS: LIDOCAINE 5% TOPICAL PATCH TP SCH ×2 (10:19)
[2017-09-01] MEDS: QUEtiapine FUMARATE 100 MG TABLET (FP) PO SCH (21:35)
[2017-09-01] MEDS: MONTELUKAST NA 10 MG TABLET PO SCH (21:35)
[2017-09-01] MEDS: LIDOCAINE PATCH REMOVAL MC SCH (21:36)
[2017-09-01] MEDS: THIAMINE HCL 100 MG TABLET (FP) PO SCH (21:36)
[2017-09-01] MEDS: ROSUVASTATIN CA 5 MG TABLET (FP) PO SCH (21:36)
[2017-09-02] MEDS: MAG HYDROX/ALH/SMC/DPHA/LIDO 240 ML MOUTHWASH MM SCH ×5 (01:15→23:43)
[2017-09-02] MEDS ORDERED: METHADONE HCL 5 MG TABLET ONE (03:29)
[2017-09-02] MEDS ORDERED: METHADONE HCL 40 MG DISPERSABLE TABLET ONE (03:30)
[2017-09-02] MEDS ORDERED: METHADONE HCL 10 MG TABLET ONE (03:30)
[2017-09-02] MEDS: METHADONE 160 MG, METHADONE 30 MG, METHADONE 5 MG PO SCH (06:25)
[2017-09-02] MEDS: metFORMIN HCL 500 MG TABLET (FP) PO SCH (06:26)
[2017-09-02 07:48] VITALS: TEMP 97.7
[2017-09-02] MEDS: NICOTINE 21 MG/24 HOURS TOPICAL PATCH TD SCH (10:13)
[2017-09-02] MEDS: ATENOLOL 25 MG TABLET (FP) PO SCH (10:13)
[2017-09-02] MEDS: PRENATAL VITAMINS W/ FOLIC ACID TABLET (FP) PO SCH (10:13)
[2017-09-02] MEDS: QUEtiapine FUMARATE 25 MG TABLET (FP) PO SCH ×2 (10:13→21:32)
[2017-09-02] MEDS: LACTULOSE 20 GM/30 ML UDC (FOR ORAL USE ONLY) PO SCH (10:13)
[2017-09-02] MEDS: LIDOCAINE 5% TOPICAL PATCH TP SCH ×2 (10:18→10:19)
[2017-09-02] MEDS: HYDROCORTISONE 2.5% TOPICAL CREAM 30 GM TUBE PR SCH (10:19)
[2017-09-02] MEDS: ABACAVIR/DOLUTEGRAVIR/LAMIVUDI (TRIUMEQ) TABLET -NF PO SCH (10:42)
--- NOTE | 2017-09-02 10:54 | PN ---
Psychiatric Progress Note Vital Signs: Vital Signs Period Temp Pulse Resp BP Sys/Miller Pulse Ox Last 24 Hr 97.7 F 65-78 18-18 126-145/70-80 Date of Session: 09/02/17 Chief Complaint:: Discharge visit HPI: Patient addressed Opioid and Anxiolytic dependence comorbid with PTSD. ROS: Significant for DM,HIV,Hep C,GERD. Current Medications: Active Medications Generic Name Dose Route Start Last Admin Trade Name Freq PRN Reason Stop Dose Admin Abacavir/Dolutegravir/Lamivudine 1 each 08/08/17 10:00 09/02/17 10:42 Triumeq (Non-Formulary) PO 1 each DAILY SRIDHAR Administration Al Hydroxide/Mg Hydroxide 30 ml 08/07/17 21:04 08/28/17 18:28 Mylanta Oral Suspension - PO 30 ml Q6H PRN Administration DYSPEPSIA Atenolol 25 mg 08/08/17 10:00 09/02/17 10:13 Tenormin - PO 25 mg DAILY SRIDHAR Administration Eucalyptus/Menthol/Phenol/Sorbitol 1 each 08/07/17 21:04 Cepastat Lozenge - MM Q4H PRN SORE THROAT Hydrocortisone 1 applic 08/17/17 14:03 09/02/17 10:19 Anusol 2.5% Hc Cream - [place] 1 applic DAILY SRIDHAR Administration Lactulose 20 gm 08/18/17 10:00 09/02/17 10:13 Cephulac (Oral Use) PO 20 gm DAILY SRIDHAR Administration Lidocaine 1 patch 08/14/17 11:22 09/02/17 10:18 Lidoderm Patch - TP 1 patch DAILY SRIDHAR Administration Lidocaine 1 patch 08/14/17 11:23 09/02/17 10:19 Lidoderm Patch - TP 1 patch DAILY SRIDHAR Administration Lidocaine/Aluminum/Magnesium/Simeth 5 ml 08/26/17 14:15 09/02/17 06:26 Magic Mouthwash *Sjr Formula* - MM 5 ml Q6HPO SRIDHAR Administration Loperamide HCl 4 mg 08/07/17 21:04 Imodium - PO Q6H PRN DIARRHEA Magnesium Citrate 300 ml 08/07/17 21:04 08/13/17 18:41 Citroma - PO 300 ml Q48H PRN Administration CONSTIPATION Magnesium Hydroxide 30 ml 08/07/17 21:04 08/10/17 17:58 Milk Of Magnesia - PO 30 ml DAILY PRN Administration CONSTIPATION Metformin HCl 500 mg 08/08/17 07:00 09/02/17 06:26 Glucophage - PO 500 mg AM SRIDHAR Administration Methadone HCl 160 mg/ 195 mg 08/31/17 06:00 09/02/17 06:25 Methadone HCl 30 mg/ Methadone PO 09/07/17 05:59 195 mg HCl 5 mg DAILY@0600 SRIDHAR Administration Miscellaneous 1 each 08/14/17 22:00 09/01/17 21:36 Lidoderm Patch Removal MC 1 each DAILY@2200 SRIDHAR Administration Montelukast Sodium 10 mg 08/08/17 22:00 09/01/17 21:35 Singulair - PO 10 mg HS SRIDHAR Administration Nicotine 21 mg 08/08/17 10:00 09/02/17 10:13 Nicoderm Patch - TD 21 mg DAILY SRIDHAR Administration Nicotine Polacrilex 4 mg 08/07/17 21:04 08/17/17 21:41 Nicorette Gum - BC 4 mg Q2H PRN Administration NICOTINE REPLACEMENT RX Multivit/Folic Acid/Iron 1 tab 08/08/17 10:00 09/02/17 10:13 Vitamins (Sjr) - PO 1 tab DAILY SRIDHAR Administration Quetiapine Fumarate 100 mg 08/16/17 20:00 09/01/17 21:35 Seroquel - PO 100 mg DAILY@2000 SRIDHAR Administration Quetiapine Fumarate 25 mg 08/21/17 15:46 09/02/17 10:13 Seroquel - PO 25 mg BID SRIDHAR Administration Rosuvastatin Calcium 5 mg 08/07/17 22:00 09/01/17 21:36 Crestor - PO 5 mg HS SRIDHAR Administration Simethicone 80 mg 08/28/17 21:32 08/30/17 21:30 Mylicon - PO 80 mg QID PRN Administration DYSPEPSIA Thiamine HCl 100 mg 08/07/17 22:00 09/01/17 21:36 Vitamin B1 - PO 100 mg HS SRIDHAR Administration Current Side Effect: No Lab tests ordered: No Lab tests reviewed: Yes Provider note:: Patient will complete this program tomorrow 09/03/17.She has met ehr treatment goals and will continue to address her issues on outpatient at her [facility] at [facility].Patie treports findinding that Seroquel 25 mg po bid and 100 mg po hs help to cope with mood instability,sdleeping difficulties.Script for 30 days provided. Supportive therapy provided focusing on relapse prevention.Patient identifies areas of difficulties,behaviors which contribute to relapse.Utilization of coping skills,support has nbeen discussed as well to maintain recovery. Patient is stable for discharge tomorrow. Total face to face time:: 30 Mental Status Exam - Mental Status Exam Alert and Oriented to: Time, Place, Person Cognitive Function: Grossly Intact Patient Appearance: Unkempt Mood: Euthymic Affect: Mood Congruent Patient Behavior: Cooperative Speech Pattern: Clear Voice Loudness: Normal Thought Process: Goal Oriented Thought Disorder: Being Controlled Hallucinations: Denies Suicidal Ideation: Denies Homicidal Ideation: Denies Insight/Judgement: Impaired Sleep: Fair Appetite: Good Muscle strength/Tone: Normal Gait/Station: Normal Psychiatric Treatment Plan - Problem List (1) Nicotine dependence Current Visit: Yes (2) Methadone maintenance therapy patient Current Visit: Yes (3) Type 2 diabetes mellitus Current Visit: Yes (4) HIV (human immunodeficiency virus infection) Current Visit: Yes (5) Benzodiazepine dependence Current Visit: Yes (6) GERD (gastroesophageal reflux disease) Current Visit: Yes (7) HTN (hypertension) Current Visit: Yes Qualifiers: Hypertension type: essential hypertension Qualified Code(s): I10 - Essential (primary) hypertension (8) Hepatitis C antibody positive in blood Current Visit: Yes (9) PTSD (post-traumatic stress disorder) Current Visit: Yes
[2017-09-02] MEDS ORDERED: PT OWN MED DRAWER 7, Y5N ONE (11:12)
[2017-09-02] MEDS: QUEtiapine FUMARATE 100 MG TABLET (FP) PO SCH (20:12)
[2017-09-02] MEDS: LIDOCAINE PATCH REMOVAL MC SCH (21:33)
[2017-09-02] MEDS: MONTELUKAST NA 10 MG TABLET PO SCH (21:33)
[2017-09-02] MEDS: THIAMINE HCL 100 MG TABLET (FP) PO SCH (21:33)
[2017-09-02] MEDS: ROSUVASTATIN CA 5 MG TABLET (FP) PO SCH (21:33)
[2017-09-03] MEDS ORDERED: METHADONE HCL 10 MG TABLET ONE (03:21)
[2017-09-03] MEDS ORDERED: METHADONE HCL 5 MG TABLET ONE (03:21)
[2017-09-03] MEDS ORDERED: METHADONE HCL 40 MG DISPERSABLE TABLET ONE (03:22)
[2017-09-03] MEDS: METHADONE 160 MG, METHADONE 30 MG, METHADONE 5 MG PO SCH (06:40)
[2017-09-03] MEDS: metFORMIN HCL 500 MG TABLET (FP) PO SCH (06:41)
[2017-09-03] MEDS: MAG HYDROX/ALH/SMC/DPHA/LIDO 240 ML MOUTHWASH MM SCH (06:41)
[2017-09-03 07:23] VITALS: BP 158/82; PULSE 69
[2017-09-03] MEDS ORDERED: PT OWN MED DRAWER 7, Y5N ONE (08:51)
[2017-09-03] MEDS: PRENATAL VITAMINS W/ FOLIC ACID TABLET (FP) PO SCH (09:58)
[2017-09-03] MEDS: HYDROCORTISONE 2.5% TOPICAL CREAM 30 GM TUBE PR SCH (09:58)
[2017-09-03] MEDS: LIDOCAINE 5% TOPICAL PATCH TP SCH ×2 (09:58)
[2017-09-03] MEDS: ABACAVIR/DOLUTEGRAVIR/LAMIVUDI (TRIUMEQ) TABLET -NF PO SCH (09:58)
[2017-09-03] MEDS: QUEtiapine FUMARATE 25 MG TABLET (FP) PO SCH (09:58)
[2017-09-03] MEDS: ATENOLOL 25 MG TABLET (FP) PO SCH (09:58)
[2017-09-03] MEDS: LACTULOSE 20 GM/30 ML UDC (FOR ORAL USE ONLY) PO SCH (09:58)
[2017-09-03] MEDS: NICOTINE 21 MG/24 HOURS TOPICAL PATCH TD SCH (09:59)
== END 2017-09-03 10:00 | disposition home or self-care (01) | DRG 772 ==
LOC: YASAS 18:27 → Y3E 20:19
PROVIDERS: ADMIT Psychiatry & Neurology Psychiatry; ATTEND Psychiatry & Neurology Psychiatry
PROC: HZ42ZZZ Group Counseling for Substance Abuse Treatment, Cognitive-Behavioral (ICD-10-PCS; principal; 2017-08-07)
DX: F13.20 Sedative, hypnotic or anxiolytic dependence, uncomplicated (principal); F11.20 Opioid dependence, uncomplicated; F17.210 Nicotine dependence, cigarettes, uncomplicated; F43.10 Post-traumatic stress disorder, unspecified; I10 Essential (primary) hypertension; E11.9 Type 2 diabetes mellitus without complications; Z21 Asymptomatic human immunodeficiency virus [HIV] infection status; K21.9 Gastro-esophageal reflux disease without esophagitis; B18.2 Chronic viral hepatitis C; K72.90 Hepatic failure, unspecified without coma; E78.00 Pure hypercholesterolemia, unspecified; D72.829 Elevated white blood cell count, unspecified; R94.5 Abnormal results of liver function studies
CPT/HCPCS: 36415; 80053; 81003; 81015; 82140; 85025; 85027; 86593; 86803; 87522; 93005; 93010